=== PATIENT | female | born 1975 | race Caucasian/White ===

== ENCOUNTER 2020-04-22 14:05 | Inpatient (IN) | payer MEDICARE, MEDICAID ==
[2020-04-22] MEDS ORDERED: Sodium Chloride 0.9% 10 ML Syringe FLUSH PRN (14:30)
[2020-04-22] MEDS ORDERED: Sodium Chloride 0.9% 1,000 ML IV ONE ×2 (14:30→14:36)
[2020-04-22] MEDS ORDERED: Famotidine 20 MG/2 ML SDV IVPUSH ONE (14:30)
[2020-04-22] MEDS ORDERED: Sodium Chloride 0.9% 2.5 ML Syringe FLUSH PRN (14:30)
[2020-04-22] MEDS ORDERED: Ondansetron 4 MG/2 ML SDV IVPUSH ONE (14:30)
--- NOTE | 2020-04-22 14:42 | EDM.PDOC ---
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 She is shortness of breath or trouble breathing. Review of systems: As per history of present illness and below otherwise all systems reviewed and negative. Past medical history: As per history of present illness and as reviewed below otherwise noncontributory. Surgical history: As per history of present illness and as reviewed below otherwise noncontributory. Social history: No reported history of drug or alcohol abuse. Family history: As per history of present illness and as reviewed below otherwise noncontributory. Physical exam: HEENT: Atraumatic, normocephalic, pupils reactive, negative for conjunctival p allor or scleral icterus, mucous membranes moist, throat clear, neck supple, nontender, trachea midline. Mucous membranes are tacky Lungs: Clear to auscultation, breath sounds equal bilaterally, chest nontender. Heart: S1S2, regular, negative for clicks, rubs, or JVD. Tachycardic Abdomen: Soft, nondistended, nontender. Negative for masses or hepatosplenomegaly. Negative for costovertebral tenderness. Pelvis: Stable nontender. Genitourinary: Deferred. Rectal: Deferred. Extremities: Atraumatic, negative for cords or calf pain. Neurovascular unremarkable. Neuro: Awake, alert, oriented. Cranial nerves II through XII unremarkable. Cerebellum unremarkable. Motor and sensory unremarkable throughout. Exam nonfocal. Diagnostics: [] Therapeutics: [] Impression: Probable DKA hyperglycemia [] Plan: Fluids labs reassess the patient antiemetics [] Definitive disposition and diagnosis as appropriate pending reevaluation and review of above. chest Pain Score (Numeric/FACES): 8 - Related Data Allergies Allergy/AdvReac Type Severity Reaction Status Date / Time haloperidol [From Haldol] Allergy Other Verified 04/22/20 20:34 ketorolac [From Toradol] Allergy Other Verified 04/22/20 20:34 metoclopramide [From Reglan] Allergy Other Verified 04/22/20 20:34 nut - unspecified Allergy Itching Verified 04/23/20 02:30 prochlorperazine Allergy Other Verified 04/22/20 20:34 [From Compazine] Home Meds: Home Meds Acetaminophen/HYDROcodone [Plain 325-10 MG] 1 tab PO Q3HR PRN 04/22/20 [History] Insulin Aspart (Niacinamide) [Fiasp 100 Unit/ml Flextouch] See Protocol IM TIDAC PRN 04/22/20 [History] Insulin Aspart [NovoLOG] See Protocol IM TIDAC 04/22/20 [History] Insulin Detemir [Levemir] 35 unit SUBCUT ACBREAKFAST 04/22/20 [History] Ondansetron [Zofran] 1 tab PO Q6HR PRN 04/22/20 [History] Promethazine [Phenergan] 1 tab PO Q6HR PRN 04/22/20 [History] busPIRone [Buspar] 30 mg PO BID 04/22/20 [History] diazePAM [Valium] 1 tab PO TID PRN 04/22/20 [History] diphenhydrAMINE [Benadryl] 1 cap PO TID PRN 04/22/20 [History] tiZANidine HCl [Zanaflex] 12 mg PO TID 04/22/20 [History] ED ROS GENERAL - Review of Systems Review Of Systems: See Below ED EXAM, GENERAL - Physical Exam Exam: See Below EKG INTERPRETATION EKG Interpretation Comments: EKG is a artifact sinus tachycardia [address]-T changes no specific ischemia read and interpreted by me Course - Vital Signs Text/Narrative:: Patient shows pancreatitis on her lab work she is still in quite a bit of pain and very nauseous CT abdomen pelvis was performed read by radiology is negative for acute process. I discussed the case with the family law mediator on with the hospitalist Dr. Hancock at 6 PM and they will accept the patient. Last Recorded V/S: Last Vital Signs Temp 36.8 C 04/23/20 04:00 Pulse 74 04/23/20 04:00 Resp 18 04/23/20 04:00 BP 122/70 04/23/20 04:00 Pulse Ox 99 04/23/20 04:00 - Orders/Labs/Meds Orders: Active Orders 24 hr Category Date Time Status Sodium Chloride 0.9% [Saline Flush] Med 04/22/20 14:30 Active 10 ml FLUSH ASDIRECTED PRN Sodium Chloride 0.9% [Saline Flush] Med 04/22/20 14:30 Active 2.5 ml FLUSH ASDIRECTED PRN Saline Lock Insert [OM.PC] Stat Oth 04/22/20 14:30 Ordered Medication Orders Acetaminophen (Tylenol) 650 mg PO Q4H PRN PRN Reason: Pain (Mild 1-3)/fever Dextrose/Water (Dextrose 50% In Water) 50 ml IVPUSH Q6H PRN PRN Reason: Hypoglycemia Diphenhydramine HCl (Benadryl) 50 mg PO TID PRN PRN Reason: Itching Enoxaparin Sodium (Lovenox) 40 mg SUBCUT BEDTIME NIGEL Last Admin: 04/22/20 21:18 Dose: 40 mg Documented by: MEENA Hydromorphone HCl (Dilaudid) 1 mg IVPUSH Q3H PRN PRN Reason: Pain Last Admin: 04/23/20 04:42 Dose: 1 mg Documented by: Admin: 04/23/20 00:26 Dose: 1 mg Documented by: MEENA Pantoprazole Sodium 40 mg/ (Sodium Chloride) 10 mls @ 300 mls/hr IV Q24H NIGEL Last Admin: 04/22/20 21:11 Dose: 300 mls/hr Documented by: MEENA Dextrose/Lactated Ringer's (Dextrose 5%-Lactated Ringers) 1,000 mls @ 125 mls/hr IV ASDIRECTED NIGEL Last Admin: 04/23/20 06:16 Dose: 125 mls/hr Documented by: Infusion: 04/23/20 06:16 Dose: 125 mls/hr Documented by: Admin: 04/22/20 22:49 Dose: 125 mls/hr Documented by: MEENA Insulin Aspart (Novolog) 0 unit SUBCUT TIDAC NIGEL; Protocol Last Admin: 04/23/20 06:30 Dose: Not Given Documented by: Admin: 04/23/20 06:10 Dose: 4 units Documented by: Admin: 04/22/20 23:03 Dose: Not Given Documented by: MEENA Insulin Detemir (Levemir) 15 unit SUBCUT DAILY [facility] Lorazepam (Ativan) 1 mg IVPUSH Q4H PRN PRN Reason: Anxiety Last Admin: 04/23/20 05:57 Dose: 1 mg Documented by: Admin: 04/23/20 01:33 Dose: 1 mg Documented by: MEENA Ondansetron HCl (Zofran) 4 mg IVPUSH Q4H PRN PRN Reason: Nausea/Vomiting Last Admin: 04/23/20 05:56 Dose: 4 mg Documented by: Admin: 04/23/20 01:36 Dose: 4 mg Documented by: Admin: 04/22/20 21:10 Dose: 4 mg Documented by: MEENA Petrolatum (Aquaphor With Natural Healing) 0 gm TOP TID PRN PRN Reason: Dryness Sodium Chloride (Saline Flush) 10 ml FLUSH ASDIRECTED PRN PRN Reason: Keep Vein Open Last Admin: 04/22/20 14:51 Dose: 10 ml Documented by: RUDDY Sodium Chloride (Saline Flush) 2.5 ml FLUSH ASDIRECTED PRN PRN Reason: Keep Vein Open Last Admin: 04/22/20 14:51 Dose: 2.5 ml Documented by: RUDDY Tizanidine HCl (Zanaflex) 12 mg PO TID [facility] Last Admin: 04/23/20 06:30 Dose: Not Given Documented by: MEENA Labs: Laboratory Tests 04/22/20 04/22/20 04/22/20 Range/Units 14:24 14:40 14:40 WBC 9.22 (4.0-11.0) K/uL RBC 4.95 (4.30-5.90) M/uL Hgb 12.9 (12.0-16.0) g/dL Hct 40.0 (36.0-46.0) % MCV 80.8 (80.0-98.0) fL MCH 26.1 L (27.0-32.0) pg MCHC 32.3 (31.0-37.0) g/dL RDW Std Deviation 38.1 (28.0-62.0) fl RDW Coeff of Nancy 13 (11.0-15.0) % Plt Count 311 (150-400) K/uL MPV 10.40 (7.40-12.00) fL Neut % (Auto) 72.3 (48.0-80.0) % Lymph % (Auto) 22.0 (16.0-40.0) % Noble % (Auto) 4.2 (0.0-15.0) % Eos % (Auto) 1.3 (0.0-7.0) % Baso % (Auto) 0.2 (0.0-1.5) % Neut # (Auto) 6.7 H (1.4-5.7) K/uL Lymph # (Auto) 2.0 (0.6-2.4) K/uL Noble # (Auto) 0.4 (0.0-0.8) K/uL Eos # (Auto) 0.1 (0.0-0.7) K/uL Baso # (Auto) 0.0 (0.0-0.1) K/uL Nucleated RBC % 0.0 /100WBC Nucleated RBCs # 0 K/uL VBG pH (7.31-7.41) VBG pCO2 (35-45) mmHG VBG pO2 (30-40) mmHG VBG HCO3 (22-30) mEq/L VBG Total CO2 (41-51) mmol/L VBG Base Excess (-3.0-3.0) Sodium 133 L (136-145) mmol/L Potassium 4.4 (3.5-5.1) mmol/L Chloride 99 (98-107) mmol/L Carbon Dioxide 22.0 (21.0-32.0) mmol/L BUN 18 (7.0-18.0) mg/dL Creatinine 0.8 (0.6-1.0) mg/dL Est Cr Clr Drug Dosing 78.30 mL/min Estimated GFR (MDRD) > 60.0 ml/min Glucose 343 H (74-106) mg/dL POC Glucose 349 H (60-110) mg/dL Calcium 9.1 (8.5-10.1) mg/dL Phosphorus 4.2 (2.6-4.7) mg/dL Magnesium 1.7 L (1.8-2.4) mg/dL Total Bilirubin 0.2 (0.2-1.0) mg/dL AST 17 (15-37) IU/L ALT 30 (14-63) IU/L Alkaline Phosphatase 130 H (46-116) U/L Troponin I < 0.050 (0.000-0.056) ng/mL Total Protein 7.5 (6.4-8.2) g/dL Albumin 4.1 (3.4-5.0) g/dL Globulin 3.4 (2.6-4.0) g/dL Albumin/Globulin Ratio 1.2 (0.9-1.6) Lipase 492 H (73-393) U/L Urine Color Urine Appearance Urine pH (5.0-8.0) Ur Specific Brenton (1.001-1.035) Urine Protein (NEGATIVE) mg/dL Urine Glucose (UA) (NEGATIVE) mg/dL Urine Ketones (NEGATIVE) mg/dL Urine Occult Blood (NEGATIVE) Urine Nitrite (NEGATIVE) Urine Bilirubin (NEGATIVE) Urine Urobilinogen (<2.0) EU/dL Ur Leukocyte Esterase (NEGATIVE) Urine RBC (0-2/HPF) Urine WBC (0-5/HPF) Ur Epithelial Cells (NONE-FEW) Urine Bacteria (NEGATIVE) Urine HCG, Qual (NEGATIVE) 04/22/20 04/22/20 04/22/20 Range/Units 14:40 14:42 14:42 WBC (4.0-11.0) K/uL RBC (4.30-5.90) M/uL Hgb (12.0-16.0) g/dL Hct (36.0-46.0) % MCV (80.0-98.0) fL MCH (27.0-32.0) pg MCHC (31.0-37.0) g/dL RDW Std Deviation (28.0-62.0) fl RDW Coeff of Nancy (11.0-15.0) % Plt Count (150-400) K/uL MPV (7.40-12.00) fL Neut % (Auto) (48.0-80.0) % Lymph % (Auto) (16.0-40.0) % Noble % (Auto) (0.0-15.0) % Eos % (Auto) (0.0-7.0) % Baso % (Auto) (0.0-1.5) % Neut # (Auto) (1.4-5.7) K/uL Lymph # (Auto) (0.6-2.4) K/uL Noble # (Auto) (0.0-0.8) K/uL Eos # (Auto) (0.0-0.7) K/uL Baso # (Auto) (0.0-0.1) K/uL Nucleated RBC % /100WBC Nucleated RBCs # K/uL VBG pH 7.39 (7.31-7.41) VBG pCO2 36 (35-45) mmHG VBG pO2 41 H (30-40) mmHG VBG HCO3 22 (22-30) mEq/L VBG Total CO2 20 L (41-51) mmol/L VBG Base Excess -2.9 (-3.0-3.0) Sodium (136-145) mmol/L Potassium (3.5-5.1) mmol/L Chloride (98-107) mmol/L Carbon Dioxide (21.0-32.0) mmol/L BUN (7.0-18.0) mg/dL Creatinine (0.6-1.0) mg/dL Est Cr Clr Drug Dosing mL/min Estimated GFR (MDRD) ml/min Glucose (74-106) mg/dL POC Glucose (60-110) mg/dL Calcium (8.5-10.1) mg/dL Phosphorus (2.6-4.7) mg/dL Magnesium (1.8-2.4) mg/dL Total Bilirubin (0.2-1.0) mg/dL AST (15-37) IU/L ALT (14-63) IU/L Alkaline Phosphatase (46-116) U/L Troponin I (0.000-0.056) ng/mL Total Protein (6.4-8.2) g/dL Albumin (3.4-5.0) g/dL Globulin (2.6-4.0) g/dL Albumin/Globulin Ratio (0.9-1.6) Lipase (73-393) U/L Urine Color YELLOW Urine Appearance CLEAR Urine pH 5.5 (5.0-8.0) Ur Specific Brenton 1.010 (1.001-1.035) Urine Protein NEGATIVE (NEGATIVE) mg/dL Urine Glucose (UA) >=1000 (NEGATIVE) mg/dL Urine Ketones 15 H (NEGATIVE) mg/dL Urine Occult Blood SMALL H (NEGATIVE) Urine Nitrite NEGATIVE (NEGATIVE) Urine Bilirubin NEGATIVE (NEGATIVE) Urine Urobilinogen 0.2 (<2.0) EU/dL Ur Leukocyte Esterase NEGATIVE (NEGATIVE) Urine RBC 0-2 (0-2/HPF) Urine WBC 0-1 (0-5/HPF) Ur Epithelial Cells FEW (NONE-FEW) Urine Bacteria FEW (NEGATIVE) Urine HCG, Qual NEGATIVE (NEGATIVE) Meds: Medications Generic Name Dose Route Start Last Admin Trade Name Freq PRN Reason Stop Dose Admin Acetaminophen 650 mg 04/22/20 20:40 Tylenol PO Q4H PRN Pain (Mild 1-3)/fever Dextrose/Water 50 ml 04/22/20 23:18 Dextrose 50% In Water IVPUSH Q6H PRN Hypoglycemia Diphenhydramine HCl 50 mg 04/22/20 23:18 Benadryl PO TID PRN Itching Enoxaparin Sodium 40 mg 04/22/20 21:00 04/22/20 21:18 Lovenox SUBCUT 40 mg BEDTIME NIGEL Administration Hydromorphone HCl 1 mg 04/22/20 22:53 04/23/20 04:42 Dilaudid IVPUSH 1 mg Q3H PRN Administration Pain Pantoprazole Sodium 40 mg/ 10 mls @ 300 mls/hr 04/22/20 20:45 04/22/20 21:11 Sodium Chloride IV 300 mls/hr Q24H NIGEL Administration Dextrose/Lactated Ringer's 1,000 mls @ 125 mls/hr 04/22/20 22:30 04/23/20 06:16 Dextrose 5%-Lactated Ringers IV 125 mls/hr ASDIRECTED NIGEL Administration Insulin Aspart 0 unit 04/22/20 22:52 04/23/20 06:30 Novolog SUBCUT Not Given [facility] Protocol Insulin Detemir 15 unit 04/23/20 09:00 Levemir SUBCUT DAILY NIGEL Lorazepam 1 mg 04/22/20 22:54 04/23/20 05:57 Ativan IVPUSH 1 mg Q4H PRN Administration Anxiety Ondansetron HCl 4 mg 04/22/20 20:32 04/23/20 05:56 Zofran IVPUSH 4 mg Q4H PRN Administration Nausea/Vomiting Petrolatum 0 gm 04/22/20 20:48 Aquaphor With Natural Healing TOP TID PRN Dryness Sodium Chloride 10 ml 04/22/20 14:30 04/22/20 14:51 Saline Flush FLUSH 10 ml ASDIRECTED PRN Administration Keep Vein Open Sodium Chloride 2.5 ml 04/22/20 14:30 04/22/20 14:51 Saline Flush FLUSH 2.5 ml ASDIRECTED PRN Administration Keep Vein Open Tizanidine HCl 12 mg 04/23/20 06:00 04/23/20 06:30 Zanaflex PO Not Given TID NIGEL Discontinued Medications Generic Name Dose Route Start Last Admin Trade Name Freq PRN Reason Stop Dose Admin Dextrose/Water Confirm 04/22/20 21:33 04/22/20 23:08 Dextrose 50% In Water Administered 04/22/20 21:34 Not Given Dose 50 ml .ROUTE .STK-MED ONE Dextrose/Water 25 ml 04/22/20 22:19 04/22/20 22:47 Dextrose 50% In Water IVPUSH 04/22/20 22:20 25 ml ONETIME ONE Administration Dextrose/Water 25 ml 04/23/20 00:20 04/23/20 00:25 Dextrose 50% In Water IVPUSH 04/23/20 00:21 25 ml ONETIME ONE Administration Diphenhydramine HCl 50 mg 04/22/20 18:03 04/22/20 18:27 Benadryl IVPUSH 04/22/20 18:04 50 mg ONETIME ONE Administration Diphenhydramine HCl 25 mg 04/22/20 22:21 04/22/20 22:47 Benadryl IVPUSH 04/22/20 22:22 25 mg ONETIME ONE Administration Famotidine 20 mg 04/22/20 14:30 04/22/20 14:51 Pepcid IVPUSH 04/22/20 14:31 20 mg ONETIME ONE Administration Hydromorphone HCl 0.5 mg 04/22/20 20:34 04/22/20 21:04 Dilaudid IVPUSH 0.5 mg Q2H PRN Administration Pain Sodium Chloride 1,000 mls @ 999 mls/hr 04/22/20 14:30 04/22/20 14:50 Normal Saline IV 04/22/20 15:30 999 mls/hr .Bolus ONE Administration Sodium Chloride 1,000 mls @ 999 mls/hr 04/22/20 14:36 04/22/20 14:51 Normal Saline IV 04/22/20 15:36 999 mls/hr .Bolus ONE Administration Lactated Ringer's 1,000 mls @ 125 mls/hr 04/22/20 20:45 04/22/20 21:01 Ringers, Lactated IV 125 mls/hr ASDIRECTED NIGEL Administration Magnesium Sulfate 2 gm in 50 mls @ 25 mls/hr 04/22/20 23:00 04/22/20 23:18 Magnesium Sulfate In Water Premix IV 04/23/20 00:59 25 mls/hr NOW ONE Administration Insulin Aspart 0 unit 04/23/20 07:30 Novolog SUBCUT [facility] Protocol Iopamidol 66 ml 04/22/20 16:39 04/22/20 16:39 Isovue-370 (76%) IVPUSH 04/22/20 16:40 66 ml ONETIME ONE Administration Lorazepam 1 mg 04/22/20 15:56 04/22/20 16:12 Ativan IVPUSH 04/22/20 15:57 1 mg ONETIME ONE Administration Lorazepam 0.5 mg 04/22/20 20:33 04/22/20 21:16 Ativan IVPUSH 0.5 mg Q4H PRN Administration Anxiety Morphine Sulfate 4 mg 04/22/20 15:03 04/22/20 15:19 Morphine IVPUSH 04/22/20 15:04 4 mg ONETIME ONE Administration Morphine Sulfate 4 mg 04/22/20 17:09 04/22/20 17:24 Morphine IVPUSH 04/22/20 17:10 4 mg ONETIME ONE Administration Ondansetron HCl 4 mg 04/22/20 14:30 04/22/20 14:51 Zofran IVPUSH 04/22/20 14:31 4 mg ONETIME ONE Administration Departure - Departure Time of Disposition: 18:10 Disposition: Refer to Observation Condition: Fair Clinical Impression: Abdominal pain - Discharge Information *PRESCRIPTION DRUG MONITORING PROGRAM REVIEWED*: Not Applicable *COPY OF PRESCRIPTION DRUG MONITORING REPORT IN PATIENT CESAR: Not Applicable Sepsis Event Note (ED) - Evaluation Sepsis Screening Result: No Definite Risk - My Orders Last 24 Hours: My Active Orders 04/22/20 14:30 Sodium Chloride 0.9% [Saline Flush] 10 ml FLUSH ASDIRECTED PRN Sodium Chloride 0.9% [Saline Flush] 2.5 ml FLUSH ASDIRECTED PRN Saline Lock Insert [OM.PC] Stat - Assessment/Plan Last 24 Hours: My Active Orders 04/22/20 14:30 Sodium Chloride 0.9% [Saline Flush] 10 ml FLUSH ASDIRECTED PRN Sodium Chloride 0.9% [Saline Flush] 2.5 ml FLUSH ASDIRECTED PRN Saline Lock Insert [OM.PC] Stat
[2020-04-22] MEDS ORDERED: Morphine 4 MG/ML Syringe IVPUSH ONE ×2 (15:03→17:09)
[2020-04-22 15:05] LABS: BLOOD UREA NITROGEN,BUN 18 mg/dL (7.0-18.0); CHLORIDE,CL 99 mmol/L (98-107); GLUCOSE RANDOM 343 mg/dL (74-106); LIPASE 492 U/L (73-393); POTASSIUM,K 4.4 mmol/L (3.5-5.1); SODIUM,NA 133 mmol/L (136-145)
--- NOTE | 2020-04-22 15:43 | CR ---
Chest: Portable view of the chest was obtained. Comparison: No prior chest x-ray. Heart size and mediastinum are normal. Lungs are clear with no acute parenchymal change. Right sided infusion port is seen. Bony structures are grossly intact. Impression: 1. Nothing acute is seen on portable chest x-ray. Diagnostic code #1 Study was dictated in MDT
[2020-04-22] MEDS ORDERED: LORazepam 2 MG/ML SDV IVPUSH ONE (15:56)
[2020-04-22] MEDS ORDERED: Iopamidol 755 Mg/ML 100 ML Bottle IVPUSH ONE (16:39)
--- NOTE | 2020-04-22 16:59 | CT ---
CT abdomen and pelvis Technique: Multiple axial images were obtained from above the dome of the diaphragm inferiorly through the pubic symphysis. Intravenous contrast was utilized. No oral contrast has been given. Reconstructed coronal and sagittal images were obtained. Comparison: No prior abdominal imaging is available. Findings: Visualized lung bases show nothing acute. Liver contains no focal parenchymal abnormality. Surgical clips are seen from previous cholecystectomy. Spleen appears within normal limits. Adrenal glands show no nodule. Pancreas shows no discrete abnormality. Kidneys show symmetric contrast enhancement without hydronephrosis or mass. Aorta shows no aneurysm. Mild atherosclerotic calcifications seen within the aorta and iliac vessels. No retroperitoneal adenopathy or mesenteric abnormalities are seen. No pelvic mass or adenopathy is seen. No free fluid or inflammatory change is appreciated within the abdomen or within the pelvis. Surgical material is seen within the right lower abdomen most likely representing previous appendectomy as no appendix is definitely appreciated. No discrete ureteral calcifications are appreciated. Bone window settings were reviewed. No acute osseous finding is appreciated. Impression: 1. Previous cholecystectomy. 2. Nothing acute is appreciated on CT study of the abdomen and pelvis. Diagnostic code #2 This report was dictated in MDT
[2020-04-22] MEDS ORDERED: diphenhydrAMINE 50 MG/ML SDV IVPUSH ONE ×2 (18:03→22:21)
[2020-04-22] MEDS ORDERED: LORazepam 2 MG/ML SDV IVPUSH PRN (20:33)
[2020-04-22] MEDS ORDERED: HYDROmorphone 2 MG/ML Syringe IVPUSH PRN (20:34)
[2020-04-22] MEDS ORDERED: Acetaminophen 325 MG Tab PO PRN (20:40)
[2020-04-22] MEDS ORDERED: Lactated Ringers 1,000 ML IV SCH (20:45)
[2020-04-22] MEDS ORDERED: Petrolatum,White Ointment 50 GM Tube TOP PRN (20:48)
--- NOTE | 2020-04-22 21:08 | PCM.HP.2 ---
<Bartolo Rockwell - Last Filed: 04/23/20 10:27> H&P History of Present Illness - General Date of Service: 04/22/20 Admit Problem/Dx: Admission Diagnosis/Problem Admission Diagnosis/Problem Pancreatitis - History of Present Illness Initial Comments - Free Text/Narative: 44 yr old female patient admitted for Acute pancreatitis and hyperglycemia. Patient presented to the ED with complaints of nausea, vomiting and abdominal pain for several days. Patient has a PMH of diabetes type 1, DKA episodes, acute pancreatitis episodes. Patient has not been able to keep food or liquid down but has continued using her insulin. Patient denies chest pain SOB, but states moderate abdominal pain, right and left flank pain and back pain. CT-Abdo was negative for any inflammatory pancreatic process, lipase elevated at 492, VBG ph 7.39, glucose 343, K+ 4.4, WBC 9.22. chest Pain Score (Numeric/FACES): 8 - Related Data Allergies/Adverse Reactions: Allergies Allergy/AdvReac Type Severity Reaction Status Date / Time haloperidol [From Haldol] Allergy Other Verified 04/22/20 20:34 ketorolac [From Toradol] Allergy Other Verified 04/22/20 20:34 metoclopramide [From Reglan] Allergy Other Verified 04/22/20 20:34 nut - unspecified Allergy Itching Verified 04/23/20 02:30 prochlorperazine Allergy Other Verified 04/22/20 20:34 [From Compazine] Home Medications: Home Meds Acetaminophen/HYDROcodone [[place] 325-10 MG] 1 tab PO Q3HR PRN 04/22/20 [History] Insulin Aspart (Niacinamide) [Fiasp 100 Unit/ml Flextouch] See Protocol IM TIDAC PRN 04/22/20 [History] Insulin Aspart [NovoLOG] See Protocol IM TIDAC 04/22/20 [History] Insulin Detemir [Levemir] 35 unit SUBCUT ACBREAKFAST 04/22/20 [History] Ondansetron [Zofran] 8 mg PO Q6HR PRN 04/22/20 [History] Promethazine [Phenergan] 25 mg PO Q6HR PRN 04/22/20 [History] busPIRone [Buspar] 30 mg PO BID 04/22/20 [History] diazePAM [Valium] 5 mg PO TID PRN 04/22/20 [History] diphenhydrAMINE [Benadryl] 1 cap PO TID PRN 04/22/20 [History] tiZANidine HCl [Zanaflex] 12 mg PO TID 04/22/20 [History] Gabapentin [Neurontin] 04/23/20 [History] Insulin Aspart (Niacinamide) [Fiasp 100 Unit/ml Flextouch] 10 units SUBCUT TIDMEALS 04/23/20 [History] Past Medical History Respiratory History: Reports: Asthma Gastrointestinal History: Reports: None Genitourinary History: Reports: None 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: Psychiatric History: Reports: Anxiety, Bipolar, Depression, Panic Attack, PTSD Endocrine/Metabolic History: Reports: Diabetes, Type I - Infectious Disease History Infectious Disease History: Reports: Chicken Pox, Measles - Past Surgical History Respiratory Surgical History: Reports: None GI Surgical History: Reports: Appendectomy, Cholecystectomy Female Surgical History: Reports: Hysterectomy Endocrine Surgical History: Reports: None Social & Family History - Family History Family Medical History: Noncontributory - Tobacco Use Smoking Status *Q: Current Every Day Smoker Years of Tobacco use: 25 Packs/Tins Daily: 1 - Caffeine Use Caffeine Use: Reports: None - Recreational Drug Use Recreational Drug Use: No H&P Review of Systems - Review of Systems: Review Of Systems: See Below General: Reports: Weakness, Fatigue. Denies: Fever, Chills Pulmonary: Denies: Shortness of Breath, Wheezing, Pleuritic Chest Pain, Cough Cardiovascular: Denies: Chest Pain, Palpitations, Dyspnea on Exertion Gastrointestinal: Reports: Abdominal Pain, Nausea, Vomiting Genitourinary: Denies: Dysuria, Frequency, Burning Musculoskeletal: Reports: Back Pain Skin: Reports: Dryness Neurological: Denies: Confusion, Dizziness, Seizure, Syncope Exam - Exam Exam: See Below - Vital Signs Vital Signs: Last Vital Signs Temp 97.1 F 04/22/20 14:18 Pulse 92 04/22/20 18:56 Resp 19 04/22/20 14:18 BP 128/93 H 04/22/20 18:56 Pulse Ox 100 04/22/20 18:56 Weight: 58.468 kg - Exam General: Alert, Oriented HEENT: EOMI Lungs: Clear to Auscultation, Normal Respiratory Effort Cardiovascular: Regular Rate, Regular Rhythm GI/Abdominal Exam: Soft, No Distention, Guarding, Tender Extremities: No Pedal Edema Skin: Warm, Dry Neuro Extensive - Mental Status: Alert, Oriented x3, Normal Cognition Neuro Extensive - Motor, Sensory, Reflexes: No: Abnormal Sensation Psychiatric: Anxious - Patient Data Lab Results Last 24 hrs: Laboratory Results - last 24 hr 04/22/20 04/22/20 04/22/20 Range/Units 14:24 14:40 14:40 WBC 9.22 (4.0-11.0) K/uL RBC 4.95 (4.30-5.90) M/uL Hgb 12.9 (12.0-16.0) g/dL Hct 40.0 (36.0-46.0) % MCV 80.8 (80.0-98.0) fL MCH 26.1 L (27.0-32.0) pg MCHC 32.3 (31.0-37.0) g/dL RDW Std Deviation 38.1 (28.0-62.0) fl RDW Coeff of Nancy 13 (11.0-15.0) % Plt Count 311 (150-400) K/uL MPV 10.40 (7.40-12.00) fL Neut % (Auto) 72.3 (48.0-80.0) % Lymph % (Auto) 22.0 (16.0-40.0) % [place] % (Auto) 4.2 (0.0-15.0) % Eos % (Auto) 1.3 (0.0-7.0) % Baso % (Auto) 0.2 (0.0-1.5) % Neut # (Auto) 6.7 H (1.4-5.7) K/uL Lymph # (Auto) 2.0 (0.6-2.4) K/uL [place] # (Auto) 0.4 (0.0-0.8) K/uL Eos # (Auto) 0.1 (0.0-0.7) K/uL Baso # (Auto) 0.0 (0.0-0.1) K/uL Nucleated RBC % 0.0 /100WBC Nucleated RBCs # 0 K/uL VBG pH (7.31-7.41) VBG pCO2 (35-45) mmHG VBG pO2 (30-40) mmHG VBG HCO3 (22-30) mEq/L VBG Total CO2 (41-51) mmol/L VBG Base Excess (-3.0-3.0) Sodium 133 L (136-145) mmol/L Potassium 4.4 (3.5-5.1) mmol/L Chloride 99 (98-107) mmol/L Carbon Dioxide 22.0 (21.0-32.0) mmol/L BUN 18 (7.0-18.0) mg/dL Creatinine 0.8 (0.6-1.0) mg/dL Est Cr Clr Drug Dosing 78.30 mL/min Estimated GFR (MDRD) > 60.0 ml/min Glucose 343 H (74-106) mg/dL POC Glucose 349 H (60-110) mg/dL Calcium 9.1 (8.5-10.1) mg/dL Phosphorus 4.2 (2.6-4.7) mg/dL Magnesium 1.7 L (1.8-2.4) mg/dL Total Bilirubin 0.2 (0.2-1.0) mg/dL AST 17 (15-37) IU/L ALT 30 (14-63) IU/L Alkaline Phosphatase 130 H (46-116) U/L Troponin I < 0.050 (0.000-0.056) ng/mL Total Protein 7.5 (6.4-8.2) g/dL Albumin 4.1 (3.4-5.0) g/dL Globulin 3.4 (2.6-4.0) g/dL Albumin/Globulin Ratio 1.2 (0.9-1.6) Lipase 492 H (73-393) U/L Urine Color Urine Appearance Urine pH (5.0-8.0) Ur Specific [place] (1.001-1.035) Urine Protein (NEGATIVE) mg/dL Urine Glucose (UA) (NEGATIVE) mg/dL Urine Ketones (NEGATIVE) mg/dL Urine Occult Blood (NEGATIVE) Urine Nitrite (NEGATIVE) Urine Bilirubin (NEGATIVE) Urine Urobilinogen (<2.0) EU/dL Ur Leukocyte Esterase (NEGATIVE) Urine RBC (0-2/HPF) Urine WBC (0-5/HPF) Ur Epithelial Cells (NONE-FEW) Urine Bacteria (NEGATIVE) Urine HCG, Qual (NEGATIVE) SARS-CoV-2 RNA (AJCLYN) (NEGATIVE) 04/22/20 04/22/20 04/22/20 Range/Units 14:40 14:42 14:42 WBC (4.0-11.0) K/uL RBC (4.30-5.90) M/uL Hgb (12.0-16.0) g/dL Hct (36.0-46.0) % MCV (80.0-98.0) fL MCH (27.0-32.0) pg MCHC (31.0-37.0) g/dL RDW Std Deviation (28.0-62.0) fl RDW Coeff of Nancy (11.0-15.0) % Plt Count (150-400) K/uL MPV (7.40-12.00) fL Neut % (Auto) (48.0-80.0) % Lymph % (Auto) (16.0-40.0) % [place] % (Auto) (0.0-15.0) % Eos % (Auto) (0.0-7.0) % Baso % (Auto) (0.0-1.5) % Neut # (Auto) (1.4-5.7) K/uL Lymph # (Auto) (0.6-2.4) K/uL [place] # (Auto) (0.0-0.8) K/uL Eos # (Auto) (0.0-0.7) K/uL Baso # (Auto) (0.0-0.1) K/uL Nucleated RBC % /100WBC Nucleated RBCs # K/uL VBG pH 7.39 (7.31-7.41) VBG pCO2 36 (35-45) mmHG VBG pO2 41 H (30-40) mmHG VBG HCO3 22 (22-30) mEq/L VBG Total CO2 20 L (41-51) mmol/L VBG Base Excess -2.9 (-3.0-3.0) Sodium (136-145) mmol/L Potassium (3.5-5.1) mmol/L Chloride (98-107) mmol/L Carbon Dioxide (21.0-32.0) mmol/L BUN (7.0-18.0) mg/dL Creatinine (0.6-1.0) mg/dL Est Cr Clr Drug Dosing mL/min Estimated GFR (MDRD) ml/min Glucose (74-106) mg/dL POC Glucose (60-110) mg/dL Calcium (8.5-10.1) mg/dL Phosphorus (2.6-4.7) mg/dL Magnesium (1.8-2.4) mg/dL Total Bilirubin (0.2-1.0) mg/dL AST (15-37) IU/L ALT (14-63) IU/L Alkaline Phosphatase (46-116) U/L Troponin I (0.000-0.056) ng/mL Total Protein (6.4-8.2) g/dL Albumin (3.4-5.0) g/dL Globulin (2.6-4.0) g/dL Albumin/Globulin Ratio (0.9-1.6) Lipase (73-393) U/L Urine Color YELLOW Urine Appearance CLEAR Urine pH 5.5 (5.0-8.0) Ur Specific [place] 1.010 (1.001-1.035) Urine Protein NEGATIVE (NEGATIVE) mg/dL Urine Glucose (UA) >=1000 (NEGATIVE) mg/dL Urine Ketones 15 H (NEGATIVE) mg/dL Urine Occult Blood SMALL H (NEGATIVE) Urine Nitrite NEGATIVE (NEGATIVE) Urine Bilirubin NEGATIVE (NEGATIVE) Urine Urobilinogen 0.2 (<2.0) EU/dL Ur Leukocyte Esterase NEGATIVE (NEGATIVE) Urine RBC 0-2 (0-2/HPF) Urine WBC 0-1 (0-5/HPF) Ur Epithelial Cells FEW (NONE-FEW) Urine Bacteria FEW (NEGATIVE) Urine HCG, Qual NEGATIVE (NEGATIVE) SARS-CoV-2 RNA (JACLYN) (NEGATIVE) 04/22/20 04/22/20 Range/Units 18:20 18:26 WBC (4.0-11.0) K/uL RBC (4.30-5.90) M/uL Hgb (12.0-16.0) g/dL Hct (36.0-46.0) % MCV (80.0-98.0) fL MCH (27.0-32.0) pg MCHC (31.0-37.0) g/dL RDW Std Deviation (28.0-62.0) fl RDW Coeff of Nancy (11.0-15.0) % Plt Count (150-400) K/uL MPV (7.40-12.00) fL Neut % (Auto) (48.0-80.0) % Lymph % (Auto) (16.0-40.0) % [place] % (Auto) (0.0-15.0) % Eos % (Auto) (0.0-7.0) % Baso % (Auto) (0.0-1.5) % Neut # (Auto) (1.4-5.7) K/uL Lymph # (Auto) (0.6-2.4) K/uL [place] # (Auto) (0.0-0.8) K/uL Eos # (Auto) (0.0-0.7) K/uL Baso # (Auto) (0.0-0.1) K/uL Nucleated RBC % /100WBC Nucleated RBCs # K/uL VBG pH (7.31-7.41) VBG pCO2 (35-45) mmHG VBG pO2 (30-40) mmHG VBG HCO3 (22-30) mEq/L VBG Total CO2 (41-51) mmol/L VBG Base Excess (-3.0-3.0) Sodium (136-145) mmol/L Potassium (3.5-5.1) mmol/L Chloride (98-107) mmol/L Carbon Dioxide (21.0-32.0) mmol/L BUN (7.0-18.0) mg/dL Creatinine (0.6-1.0) mg/dL Est Cr Clr Drug Dosing mL/min Estimated GFR (MDRD) ml/min Glucose (74-106) mg/dL POC Glucose 88 (60-110) mg/dL Calcium (8.5-10.1) mg/dL Phosphorus (2.6-4.7) mg/dL Magnesium (1.8-2.4) mg/dL Total Bilirubin (0.2-1.0) mg/dL AST (15-37) IU/L ALT (14-63) IU/L Alkaline Phosphatase (46-116) U/L Troponin I (0.000-0.056) ng/mL Total Protein (6.4-8.2) g/dL Albumin (3.4-5.0) g/dL Globulin (2.6-4.0) g/dL Albumin/Globulin Ratio (0.9-1.6) Lipase (73-393) U/L Urine Color Urine Appearance Urine pH (5.0-8.0) Ur Specific [place] (1.001-1.035) Urine Protein (NEGATIVE) mg/dL Urine Glucose (UA) (NEGATIVE) mg/dL Urine Ketones (NEGATIVE) mg/dL Urine Occult Blood (NEGATIVE) Urine Nitrite (NEGATIVE) Urine Bilirubin (NEGATIVE) Urine Urobilinogen (<2.0) EU/dL Ur Leukocyte Esterase (NEGATIVE) Urine RBC (0-2/HPF) Urine WBC (0-5/HPF) Ur Epithelial Cells (NONE-FEW) Urine Bacteria (NEGATIVE) Urine HCG, Qual (NEGATIVE) SARS-CoV-2 RNA (JACLYN) NEGATIVE (NEGATIVE) Result Diagrams: 04/23/20 05:53 04/23/20 05:53 Sepsis Event Note - Evaluation Sepsis Screening Result: No Definite Risk - Focused Exam Vital Signs: Vital Signs Temp Pulse Resp BP Pulse Ox 04/22/20 18:56 92 128/93 H 100 04/22/20 18:42 87 119/89 97 04/22/20 17:57 94/60 04/22/20 17:26 84 117/72 100 04/22/20 16:12 121/64 04/22/20 15:11 103/61 04/22/20 15:05 89/49 L 04/22/20 14:40 95 100 04/22/20 14:18 97.1 F 72 19 138/102 H 98 Problem List Initiated/Reviewed/Updated: Yes Orders Last 24hrs: Active Orders 24 hr Category Date Time Status Patient Status [ADT] Routine ADT 04/22/20 17:57 Active Blood Glucose Check, Bedside [RC] ONETIME Care 04/22/20 17:57 Active Oxygen Therapy [RC] PRN Care 04/22/20 20:40 Active VTE/DVT Education [RC] PER UNIT ROUTINE Care 04/22/20 20:40 Active Vital Signs [RC] Q4H Care 04/22/20 20:40 Active NPO Now [Nothing per Oral Now Diet] [DIET] Diet 04/22/20 Dinner Active Acetaminophen [TylenoL] Med 04/22/20 20:40 Active 650 mg PO Q4H PRN Enoxaparin [Lovenox] Med 04/22/20 21:00 Active 40 mg SUBCUT BEDTIME HYDROmorphone [Dilaudid] Med 04/22/20 20:34 Active 0.5 mg IVPUSH Q2H PRN Insulin Aspart [NovoLOG] Med 04/23/20 07:30 Active See Protocol SUBCUT TIDAC LORazepam [Ativan] Med 04/22/20 20:33 Active 0.5 mg IVPUSH Q4H PRN Lactated Ringers [Ringers, Lactated] 1,000 ml Med 04/22/20 20:45 Active IV ASDIRECTED Ondansetron [Zofran] Med 04/22/20 20:32 Active 4 mg IVPUSH Q4H PRN Pantoprazole [ProTONIX IV] 40 mg Med 04/22/20 20:45 Active Sodium Chloride 0.9% [Normal Saline] 10 ml IV Q24H Petrolatum,White [Aquaphor with Natural Healing] Med 04/22/20 20:48 Active See Dose Instructions TOP TID PRN Sodium Chloride 0.9% [Saline Flush] Med 04/22/20 14:30 Active 10 ml FLUSH ASDIRECTED PRN Sodium Chloride 0.9% [Saline Flush] Med 04/22/20 14:30 Active 2.5 ml FLUSH ASDIRECTED PRN Saline Lock Insert [OM.PC] Stat Oth 04/22/20 14:30 Ordered Code Status [Resuscitation Status] Routine Resus Stat 04/22/20 20:52 Ordered Medication Orders Acetaminophen (Tylenol) 650 mg PO Q4H PRN PRN Reason: Pain (Mild 1-3)/fever Enoxaparin Sodium (Lovenox) 40 mg SUBCUT BEDTIME NIGEL Hydromorphone HCl (Dilaudid) 0.5 mg IVPUSH Q2H PRN PRN Reason: Pain Lactated Ringer's (Ringers, Lactated) 1,000 mls @ 125 mls/hr IV ASDIRECTED NIGEL Pantoprazole Sodium 40 mg/ (Sodium Chloride) 10 mls @ 300 mls/hr IV Q24H NIGEL Insulin Aspart (Novolog) 0 unit SUBCUT TIDAC NIGEL; Protocol Lorazepam (Ativan) 0.5 mg IVPUSH Q4H PRN PRN Reason: Anxiety Ondansetron HCl (Zofran) 4 mg IVPUSH Q4H PRN PRN Reason: Nausea/Vomiting Petrolatum (Aquaphor With Natural Healing) 0 gm TOP TID PRN PRN Reason: Dryness Sodium Chloride (Saline Flush) 10 ml FLUSH ASDIRECTED PRN PRN Reason: Keep Vein Open Last Admin: 04/22/20 14:51 Dose: 10 ml Documented by: RUDDY Sodium Chloride (Saline Flush) 2.5 ml FLUSH ASDIRECTED PRN PRN Reason: Keep Vein Open Last Admin: 04/22/20 14:51 Dose: 2.5 ml Documented by: RUDDY Assessment/Plan Comment:: Assessment/Plan: Acute Pancreatitis- NPO, 125ml/hr LR, (Patient received 2L NS bolus in the ED), Dilaudid 0.5mg, Zofran 4mg, PPI 40mg daily, Hyperglycemia- Secondary to DM 1, Insulin sliding scale, IV FLUIDS, Will resume home dose of Levemir at bedtime once medications have been reconciled. PMH Anxiety, Bipolar- Resume Home meds (med rec pending) <Tierra Andrade - Last Filed: 04/25/20 14:26> H&P History of Present Illness - General Admit Problem/Dx: Admission Diagnosis/Problem Admission Diagnosis/Problem Pancreatitis Exam - Vital Signs Vital Signs: Last Vital Signs Temp 37.1 C 04/25/20 11:00 Pulse 113 H 04/25/20 11:00 Resp 18 04/25/20 11:00 BP 105/69 04/25/20 11:00 Pulse Ox 97 04/25/20 11:00 - Patient Data Lab Results Last 24 hrs: Laboratory Results - last 24 hr 04/24/20 04/24/20 04/24/20 Range/Units 05:00 17:42 23:46 WBC (4.0-11.0) K/uL RBC (4.30-5.90) M/uL Hgb (12.0-16.0) g/dL Hct (36.0-46.0) % MCV (80.0-98.0) fL MCH (27.0-32.0) pg MCHC (31.0-37.0) g/dL RDW Std Deviation (28.0-62.0) fl RDW Coeff of Nancy (11.0-15.0) % Plt Count (150-400) K/uL MPV (7.40-12.00) fL Neut % (Auto) (48.0-80.0) % Lymph % (Auto) (16.0-40.0) % [place] % (Auto) (0.0-15.0) % Eos % (Auto) (0.0-7.0) % Baso % (Auto) (0.0-1.5) % Neut # (Auto) (1.4-5.7) K/uL Lymph # (Auto) (0.6-2.4) K/uL [place] # (Auto) (0.0-0.8) K/uL Eos # (Auto) (0.0-0.7) K/uL Baso # (Auto) (0.0-0.1) K/uL Nucleated RBC % /100WBC Nucleated RBCs # K/uL Sodium (136-145) mmol/L Potassium (3.5-5.1) mmol/L Chloride (98-107) mmol/L Carbon Dioxide (21.0-32.0) mmol/L BUN (7.0-18.0) mg/dL Creatinine (0.6-1.0) mg/dL Est Cr Clr Drug Dosing mL/min Estimated GFR (MDRD) ml/min Glucose (74-106) mg/dL POC Glucose 424 H 240 H (60-110) mg/dL Hemoglobin A1c 9.3 H (4.5-6.2) % Calcium (8.5-10.1) mg/dL Phosphorus (2.6-4.7) mg/dL Magnesium (1.8-2.4) mg/dL Troponin I (0.000-0.056) ng/mL Lipase (73-393) U/L 04/25/20 04/25/20 04/25/20 Range/Units 06:10 06:25 06:25 WBC 4.80 (4.0-11.0) K/uL RBC 4.31 (4.30-5.90) M/uL Hgb 10.9 L (12.0-16.0) g/dL Hct 35.3 L (36.0-46.0) % MCV 81.9 (80.0-98.0) fL MCH 25.3 L (27.0-32.0) pg MCHC 30.9 L (31.0-37.0) g/dL RDW Std Deviation 37.5 (28.0-62.0) fl RDW Coeff of Nancy 13 (11.0-15.0) % Plt Count 248 (150-400) K/uL MPV 10.70 (7.40-12.00) fL Neut % (Auto) 52.7 (48.0-80.0) % Lymph % (Auto) 38.5 (16.0-40.0) % [place] % (Auto) 6.3 (0.0-15.0) % Eos % (Auto) 2.3 (0.0-7.0) % Baso % (Auto) 0.2 (0.0-1.5) % Neut # (Auto) 2.5 (1.4-5.7) K/uL Lymph # (Auto) 1.9 (0.6-2.4) K/uL [place] # (Auto) 0.3 (0.0-0.8) K/uL Eos # (Auto) 0.1 (0.0-0.7) K/uL Baso # (Auto) 0.0 (0.0-0.1) K/uL Nucleated RBC % 0.0 /100WBC Nucleated RBCs # 0 K/uL Sodium 133 L (136-145) mmol/L Potassium 4.6 (3.5-5.1) mmol/L Chloride 98 (98-107) mmol/L Carbon Dioxide 23.7 (21.0-32.0) mmol/L BUN 9 (7.0-18.0) mg/dL Creatinine 0.8 (0.6-1.0) mg/dL Est Cr Clr Drug Dosing 78.30 mL/min Estimated GFR (MDRD) > 60.0 ml/min Glucose 468 H (74-106) mg/dL POC Glucose 394 H (60-110) mg/dL Hemoglobin A1c (4.5-6.2) % Calcium 7.9 L (8.5-10.1) mg/dL Phosphorus 3.8 (2.6-4.7) mg/dL Magnesium 1.5 L (1.8-2.4) mg/dL Troponin I (0.000-0.056) ng/mL Lipase (73-393) U/L 04/25/20 04/25/20 04/25/20 Range/Units 09:46 10:09 10:09 WBC (4.0-11.0) K/uL RBC (4.30-5.90) M/uL Hgb (12.0-16.0) g/dL Hct (36.0-46.0) % MCV (80.0-98.0) fL MCH (27.0-32.0) pg MCHC (31.0-37.0) g/dL RDW Std Deviation (28.0-62.0) fl RDW Coeff of Nancy (11.0-15.0) % Plt Count (150-400) K/uL MPV (7.40-12.00) fL Neut % (Auto) (48.0-80.0) % Lymph % (Auto) (16.0-40.0) % [place] % (Auto) (0.0-15.0) % Eos % (Auto) (0.0-7.0) % Baso % (Auto) (0.0-1.5) % Neut # (Auto) (1.4-5.7) K/uL Lymph # (Auto) (0.6-2.4) K/uL [place] # (Auto) (0.0-0.8) K/uL Eos # (Auto) (0.0-0.7) K/uL Baso # (Auto) (0.0-0.1) K/uL Nucleated RBC % /100WBC Nucleated RBCs # K/uL Sodium (136-145) mmol/L Potassium (3.5-5.1) mmol/L Chloride (98-107) mmol/L Carbon Dioxide (21.0-32.0) mmol/L BUN (7.0-18.0) mg/dL Creatinine (0.6-1.0) mg/dL Est Cr Clr Drug Dosing mL/min Estimated GFR (MDRD) ml/min Glucose 563 H* (74-106) mg/dL POC Glucose > 500 H (60-110) mg/dL Hemoglobin A1c (4.5-6.2) % Calcium (8.5-10.1) mg/dL Phosphorus (2.6-4.7) mg/dL Magnesium (1.8-2.4) mg/dL Troponin I < 0.050 (0.000-0.056) ng/mL Lipase (73-393) U/L 04/25/20 04/25/20 04/25/20 Range/Units 10:09 10:56 12:15 WBC (4.0-11.0) K/uL RBC (4.30-5.90) M/uL Hgb (12.0-16.0) g/dL Hct (36.0-46.0) % MCV (80.0-98.0) fL MCH (27.0-32.0) pg MCHC (31.0-37.0) g/dL RDW Std Deviation (28.0-62.0) fl RDW Coeff of Nancy (11.0-15.0) % Plt Count (150-400) K/uL MPV (7.40-12.00) fL Neut % (Auto) (48.0-80.0) % Lymph % (Auto) (16.0-40.0) % [place] % (Auto) (0.0-15.0) % Eos % (Auto) (0.0-7.0) % Baso % (Auto) (0.0-1.5) % Neut # (Auto) (1.4-5.7) K/uL Lymph # (Auto) (0.6-2.4) K/uL [place] # (Auto) (0.0-0.8) K/uL Eos # (Auto) (0.0-0.7) K/uL Baso # (Auto) (0.0-0.1) K/uL Nucleated RBC % /100WBC Nucleated RBCs # K/uL Sodium (136-145) mmol/L Potassium (3.5-5.1) mmol/L Chloride (98-107) mmol/L Carbon Dioxide (21.0-32.0) mmol/L BUN (7.0-18.0) mg/dL Creatinine (0.6-1.0) mg/dL Est Cr Clr Drug Dosing mL/min Estimated GFR (MDRD) ml/min Glucose (74-106) mg/dL POC Glucose 376 H 221 H (60-110) mg/dL Hemoglobin A1c (4.5-6.2) % Calcium (8.5-10.1) mg/dL Phosphorus (2.6-4.7) mg/dL Magnesium (1.8-2.4) mg/dL Troponin I (0.000-0.056) ng/mL Lipase 64 L (73-393) U/L 04/25/20 Range/Units 13:28 WBC (4.0-11.0) K/uL RBC (4.30-5.90) M/uL Hgb (12.0-16.0) g/dL Hct (36.0-46.0) % MCV (80.0-98.0) fL MCH (27.0-32.0) pg MCHC (31.0-37.0) g/dL RDW Std Deviation (28.0-62.0) fl RDW Coeff of Nancy (11.0-15.0) % Plt Count (150-400) K/uL MPV (7.40-12.00) fL Neut % (Auto) (48.0-80.0) % Lymph % (Auto) (16.0-40.0) % Daggett % (Auto) (0.0-15.0) % Eos % (Auto) (0.0-7.0) % Baso % (Auto) (0.0-1.5) % Neut # (Auto) (1.4-5.7) K/uL Lymph # (Auto) (0.6-2.4) K/uL Daggett # (Auto) (0.0-0.8) K/uL Eos # (Auto) (0.0-0.7) K/uL Baso # (Auto) (0.0-0.1) K/uL Nucleated RBC % /100WBC Nucleated RBCs # K/uL Sodium (136-145) mmol/L Potassium (3.5-5.1) mmol/L Chloride (98-107) mmol/L Carbon Dioxide (21.0-32.0) mmol/L BUN (7.0-18.0) mg/dL Creatinine (0.6-1.0) mg/dL Est Cr Clr Drug Dosing mL/min Estimated GFR (MDRD) ml/min Glucose (74-106) mg/dL POC Glucose 148 H (60-110) mg/dL Hemoglobin A1c (4.5-6.2) % Calcium (8.5-10.1) mg/dL Phosphorus (2.6-4.7) mg/dL Magnesium (1.8-2.4) mg/dL Troponin I (0.000-0.056) ng/mL Lipase (73-393) U/L Result Diagrams: 04/25/20 06:25 04/25/20 06:25 Sepsis Event Note - Focused Exam Vital Signs: Vital Signs Temp Pulse Resp BP Pulse Ox 04/25/20 11:00 37.1 C 113 H 18 105/69 97 04/25/20 07:55 36.8 C 84 16 108/64 97 04/25/20 04:07 36.4 C 83 16 138/83 97 - Problem List (1) Pancreatitis SNOMED Code(s): 37118678 ICD Code: K85.90 - ACUTE PANCREATITIS WITHOUT NECROSIS OR INFECTION, UNSP Status: Acute Current Visit: Yes (2) Abdominal pain SNOMED Code(s): 93789171 ICD Code: R10.9 - UNSPECIFIED ABDOMINAL PAIN Status: Acute Current Visit: Yes (3) Port-A-Cath in place SNOMED Code(s): 866248810 ICD Code: Z95.828 - PRESENCE OF OTHER VASCULAR IMPLANTS AND GRAFTS Status: Acute Current Visit: Yes Orders Last 24hrs: Active Orders 24 hr Category Date Time Status EKG 12 Lead [EKG Documentation Completion] [RC] STAT Care 04/25/20 11:08 Active Clear Liquid Diet [DIET] Diet 04/25/20 Dinner Ordered HEPATIC FUNCTION PANEL,HFP [CHEM] Routine Lab 04/25/20 06:25 Received HYDROmorphone [Dilaudid] Med 04/24/20 17:32 Active 1 mg IVPUSH Q4H PRN LORazepam [Ativan] Med 04/25/20 11:09 Active 1 mg IVPUSH Q4H PRN Lactated Ringers [Ringers, Lactated] 1,000 ml Med 04/25/20 10:00 Active IV ASDIRECTED Promethazine [Phenergan] Med 04/25/20 11:09 Active 12.5 mg IM Q6H PRN oxyCODONE Med 04/24/20 17:32 Active 5 mg PO Q4H PRN Medication Orders Acetaminophen (Tylenol) 650 mg PO Q4H PRN PRN Reason: Pain (Mild 1-3)/fever Dextrose/Water (Dextrose 50% In Water) 50 ml IVPUSH Q6H PRN PRN Reason: Hypoglycemia Last Admin: 04/23/20 23:18 Dose: 25 ml Documented by: Admin: 04/23/20 20:42 Dose: 25 ml Documented by: Admin: 04/23/20 19:22 Dose: 25 ml Documented by: Admin: 04/23/20 17:41 Dose: 25 ml Documented by: SEAN Diphenhydramine HCl (Benadryl) 50 mg PO TID PRN PRN Reason: Itching Diphenhydramine HCl (Benadryl) 25 mg IVPUSH Q8H PRN PRN Reason: itching/allergies Last Admin: 04/25/20 12:51 Dose: 25 mg Documented by: Admin: 04/25/20 04:50 Dose: 25 mg Documented by: Admin: 04/24/20 20:43 Dose: 25 mg Documented by: Admin: 04/24/20 12:03 Dose: 25 mg Documented by: Admin: 04/24/20 03:40 Dose: 25 mg Documented by: Admin: 04/23/20 18:57 Dose: 25 mg Documented by: Admin: 04/23/20 10:28 Dose: 25 mg Documented by: CAIN Enoxaparin Sodium (Lovenox) 40 mg SUBCUT BEDTIME NIGEL Last Admin: 04/24/20 20:43 Dose: 40 mg Documented by: Admin: 04/23/20 20:53 Dose: 40 mg Documented by: Admin: 04/22/20 21:18 Dose: 40 mg Documented by: MEENA Hydromorphone HCl (Dilaudid) 1 mg IVPUSH Q4H PRN PRN Reason: Pain Last Admin: 04/25/20 12:48 Dose: 1 mg Documented by: Admin: 04/25/20 08:31 Dose: 1 mg Documented by: Admin: 04/25/20 04:12 Dose: 1 mg Documented by: Admin: 04/25/20 00:01 Dose: 1 mg Documented by: Admin: 04/24/20 19:41 Dose: 1 mg Documented by: MAISHA Pantoprazole Sodium 40 mg/ (Sodium Chloride) 10 mls @ 300 mls/hr IV Q24H [facility] Last Admin: 04/24/20 20:42 Dose: 300 mls/hr Documented by: Infusion: 04/23/20 20:53 Dose: 300 mls/hr Documented by: Admin: 04/23/20 20:51 Dose: 300 mls/hr Documented by: Infusion: 04/22/20 21:13 Dose: 300 mls/hr Documented by: Admin: 04/22/20 21:11 Dose: 300 mls/hr Documented by: MEENA Lactated Ringer's (Ringers, Lactated) 1,000 mls @ 125 mls/hr IV ASDIRECTED [facility] Last Admin: 04/25/20 10:04 Dose: 125 mls/hr Documented by: NANCY Insulin Aspart (Novolog) 0 unit SUBCUT TIDAC [facility]; Protocol Last Admin: 04/25/20 12:51 Dose: 4 units Documented by: Admin: 04/25/20 08:35 Dose: 10 units Documented by: Admin: 04/24/20 18:08 Dose: 10 units Documented by: Admin: 04/24/20 12:13 Dose: 2 units Documented by: CAROL Cosigned by: MAISHA Admin: 04/24/20 08:30 Dose: 8 units Documented by: Admin: 04/23/20 17:30 Dose: Not Given Documented by: Admin: 04/23/20 13:05 Dose: 6 units Documented by: Admin: 04/23/20 06:30 Dose: Not Given Documented by: Admin: 04/23/20 06:10 Dose: 4 units Documented by: Admin: 04/22/20 23:03 Dose: Not Given Documented by: MEENA Insulin Detemir (Levemir) 15 unit SUBCUT DAILY [facility] Last Admin: 04/25/20 09:49 Dose: 15 units Documented by: Admin: 04/24/20 09:51 Dose: 15 units Documented by: CAROL Borjaigned by: [id number] Admin: 04/23/20 10:33 Dose: 15 units Documented by: CAIN Lorazepam (Ativan) 1 mg IVPUSH Q4H PRN PRN Reason: Anxiety Last Admin: 04/25/20 12:06 Dose: 1 mg Documented by: NANCY Ondansetron HCl (Zofran) 4 mg IVPUSH Q4H PRN PRN Reason: Nausea/Vomiting Last Admin: 04/25/20 12:49 Dose: 4 mg Documented by: Admin: 04/25/20 08:35 Dose: 4 mg Documented by: Admin: 04/25/20 04:50 Dose: 4 mg Documented by: Admin: 04/25/20 00:47 Dose: 4 mg Documented by: Admin: 04/24/20 20:43 Dose: 4 mg Documented by: Admin: 04/24/20 16:22 Dose: 4 mg Documented by: Admin: 04/24/20 12:19 Dose: 4 mg Documented by: Admin: 04/24/20 08:23 Dose: 4 mg Documented by: Admin: 04/24/20 03:40 Dose: 4 mg Documented by: Admin: 04/23/20 23:24 Dose: 4 mg Documented by: Admin: 04/23/20 18:54 Dose: 4 mg Documented by: Admin: 04/23/20 14:32 Dose: 4 mg Documented by: Admin: 04/23/20 10:27 Dose: 4 mg Documented by: Admin: 04/23/20 05:56 Dose: 4 mg Documented by: Admin: 04/23/20 01:36 Dose: 4 mg Documented by: Admin: 04/22/20 21:10 Dose: 4 mg Documented by: MEENA Oxycodone HCl (Oxycodone) 5 mg PO Q4H PRN PRN Reason: Abdominal Pain Petrolatum (Aquaphor With Natural Healing) 0 gm TOP TID PRN PRN Reason: Dryness Last Admin: 04/24/20 23:59 Dose: 1 applic Documented by: ISAAC Promethazine HCl (Phenergan) 12.5 mg IM Q6H PRN PRN Reason: Nausea Last Admin: 04/25/20 12:07 Dose: 12.5 mg Documented by: NANCY Sodium Chloride (Saline Flush) 10 ml FLUSH ASDIRECTED PRN PRN Reason: Keep Vein Open Last Admin: 04/22/20 14:51 Dose: 10 ml Documented by: RUDDY Sodium Chloride (Saline Flush) 2.5 ml FLUSH ASDIRECTED PRN PRN Reason: Keep Vein Open Last Admin: 04/22/20 14:51 Dose: 2.5 ml Documented by: RUDDY Tizanidine HCl (Zanaflex) 12 mg PO TID NIGEL Last Admin: 04/25/20 05:16 Dose: Not Given Documented by: Admin: 04/24/20 22:54 Dose: Not Given Documented by: Admin: 04/24/20 15:05 Dose: Not Given Documented by: Admin: 04/24/20 06:19 Dose: Not Given Documented by: Admin: 04/23/20 21:55 Dose: Not Given Documented by: Admin: 04/23/20 14:38 Dose: Not Given Documented by: Admin: 04/23/20 06:30 Dose: Not Given Documented by: MEENA Assessment/Plan Comment:: I performed a history and physical exam of the patient and discussed management with resident. I have reviewed the residents note and agree with documented findings and plan unless otherwise specified in my note.
[2020-04-22] MEDS: Ondansetron 4 MG/2 ML SDV IVPUSH PRN (21:10)
[2020-04-22] MEDS: Pantoprazole 40 MG in Sodium Chloride 0.9% 10 ML IV SCH (21:11)
[2020-04-22] MEDS: Enoxaparin 40 MG/0.4 ML Syringe SUBCUT SCH (21:18)
[2020-04-22] MEDS ORDERED: 50% Dextrose in Water 50 ML Syringe ONE (21:33)
[2020-04-22] MEDS ORDERED: 50% Dextrose in Water 50 ML Syringe IVPUSH ONE (22:19)
[2020-04-22] MEDS: Dextrose 5%-Lactated Ringers 1,000 ML IV SCH (22:49)
[2020-04-22] MEDS ORDERED: Magnesium Sulfate/Water 2 GM/50 ML Premix Bag IV ONE (23:00)
[2020-04-22] MEDS ORDERED: Magnesium Sulfate/Water 2 GM/50 ML BAG IV ONE (23:00)
[2020-04-22] MEDS: Insulin Aspart 100 Units/ML 3 ML Pen SUBCUT SCH (23:03)
[2020-04-23] MEDS ORDERED: 50% Dextrose in Water 50 ML Syringe IVPUSH ONE (00:20)
[2020-04-23] MEDS: HYDROmorphone 2 MG/ML Syringe IVPUSH PRN ×7 (00:26→22:00)
[2020-04-23] MEDS: LORazepam 2 MG/ML SDV IVPUSH PRN ×6 (01:33→23:22)
[2020-04-23] MEDS: Ondansetron 4 MG/2 ML SDV IVPUSH PRN ×6 (01:36→23:24)
[2020-04-23] MEDS: Insulin Aspart 100 Units/ML 3 ML Pen SUBCUT SCH ×4 (06:10→17:30)
[2020-04-23] MEDS: Dextrose 5%-Lactated Ringers 1,000 ML IV SCH ×3 (06:16→20:45)
[2020-04-23 06:28] LABS: BLOOD UREA NITROGEN,BUN 11 mg/dL (7.0-18.0); CARBON DIOXIDE,CO2 25.2 mmol/L (21.0-32.0); CHLORIDE,CL 106 mmol/L (98-107); GLUCOSE RANDOM 226 mg/dL (74-106); POTASSIUM,K 4.2 mmol/L (3.5-5.1); SODIUM,NA 139 mmol/L (136-145)
[2020-04-23] MEDS: tiZANidine 4 MG Tab PO SCH ×3 (06:30→21:55)
[2020-04-23] MEDS ORDERED: Insulin Aspart 100 Units/ML 3 ML Pen SUBCUT SCH (07:30)
[2020-04-23] MEDS: diphenhydrAMINE 50 MG/ML SDV IVPUSH PRN ×2 (10:28→18:57)
[2020-04-23] MEDS ORDERED: Lactated Ringers 1,000 ML IV ONE (10:31)
[2020-04-23] MEDS: Insulin Detemir 100 Units/ML 3 ML Pen SUBCUT SCH (10:33)
--- NOTE | 2020-04-23 11:35 | PCM.PN ---
- General Info Date of Service: 04/23/20 Admission Dx/Problem (Free Text): Admission Diagnosis/Problem Admission Diagnosis/Problem Pancreatitis Subjective Update: patient states that she still feels nauseous, does not want to try any clears, requesting her Benadryl to be made IV route, denies fevers, chills, vomiting, bleeding - Review of Systems General: Reports: Weakness. Denies: Fever, Fatigue Pulmonary: Denies: Shortness of Breath, Pleuritic Chest Pain Cardiovascular: Denies: Chest Pain, Palpitations, Dyspnea on Exertion Gastrointestinal: Reports: Abdominal Pain, Decreased Appetite, Difficulty Swallowing, Flatus, Nausea. Denies: Constipation, Diarrhea, Hematochezia, Melena, Vomiting Genitourinary: Denies: Dysuria, Frequency, Burning Musculoskeletal: Reports: Back Pain - Patient Data Vitals - Most Recent: Last Vital Signs Temp 36.8 C 04/23/20 04:00 Pulse 74 04/23/20 04:00 Resp 18 04/23/20 04:00 BP 122/70 04/23/20 04:00 Pulse Ox 99 04/23/20 04:00 Weight - Most Recent: 58.468 kg I&O - Last 24 Hours: Intake & Output 04/22/20 04/23/20 04/23/20 22:59 06:59 14:59 Intake Total 0 Output Total 680 Balance -680 Lab Results Last 24 Hours: Laboratory Results - last 24 hr 04/22/20 04/22/20 04/22/20 Range/Units 14:24 14:40 14:40 WBC 9.22 (4.0-11.0) K/uL RBC 4.95 (4.30-5.90) M/uL Hgb 12.9 (12.0-16.0) g/dL Hct 40.0 (36.0-46.0) % MCV 80.8 (80.0-98.0) fL MCH 26.1 L (27.0-32.0) pg MCHC 32.3 (31.0-37.0) g/dL RDW Std Deviation 38.1 (28.0-62.0) fl RDW Coeff of Nancy 13 (11.0-15.0) % Plt Count 311 (150-400) K/uL MPV 10.40 (7.40-12.00) fL Neut % (Auto) 72.3 (48.0-80.0) % Lymph % (Auto) 22.0 (16.0-40.0) % Waller % (Auto) 4.2 (0.0-15.0) % Eos % (Auto) 1.3 (0.0-7.0) % Baso % (Auto) 0.2 (0.0-1.5) % Neut # (Auto) 6.7 H (1.4-5.7) K/uL Lymph # (Auto) 2.0 (0.6-2.4) K/uL Waller # (Auto) 0.4 (0.0-0.8) K/uL Eos # (Auto) 0.1 (0.0-0.7) K/uL Baso # (Auto) 0.0 (0.0-0.1) K/uL Nucleated RBC % 0.0 /100WBC Nucleated RBCs # 0 K/uL VBG pH (7.31-7.41) VBG pCO2 (35-45) mmHG VBG pO2 (30-40) mmHG VBG HCO3 (22-30) mEq/L VBG Total CO2 (41-51) mmol/L VBG Base Excess (-3.0-3.0) Sodium 133 L (136-145) mmol/L Potassium 4.4 (3.5-5.1) mmol/L Chloride 99 (98-107) mmol/L Carbon Dioxide 22.0 (21.0-32.0) mmol/L BUN 18 (7.0-18.0) mg/dL Creatinine 0.8 (0.6-1.0) mg/dL Est Cr Clr Drug Dosing 78.30 mL/min Estimated GFR (MDRD) > 60.0 ml/min Glucose 343 H (74-106) mg/dL POC Glucose 349 H (60-110) mg/dL Calcium 9.1 (8.5-10.1) mg/dL Phosphorus 4.2 (2.6-4.7) mg/dL Magnesium 1.7 L (1.8-2.4) mg/dL Total Bilirubin 0.2 (0.2-1.0) mg/dL AST 17 (15-37) IU/L ALT 30 (14-63) IU/L Alkaline Phosphatase 130 H (46-116) U/L Troponin I < 0.050 (0.000-0.056) ng/mL Total Protein 7.5 (6.4-8.2) g/dL Albumin 4.1 (3.4-5.0) g/dL Globulin 3.4 (2.6-4.0) g/dL Albumin/Globulin Ratio 1.2 (0.9-1.6) Lipase 492 H (73-393) U/L Urine Color Urine Appearance Urine pH (5.0-8.0) Ur Specific Enders (1.001-1.035) Urine Protein (NEGATIVE) mg/dL Urine Glucose (UA) (NEGATIVE) mg/dL Urine Ketones (NEGATIVE) mg/dL Urine Occult Blood (NEGATIVE) Urine Nitrite (NEGATIVE) Urine Bilirubin (NEGATIVE) Urine Urobilinogen (<2.0) EU/dL Ur Leukocyte Esterase (NEGATIVE) Urine RBC (0-2/HPF) Urine WBC (0-5/HPF) Ur Epithelial Cells (NONE-FEW) Urine Bacteria (NEGATIVE) Urine HCG, Qual (NEGATIVE) SARS-CoV-2 RNA (JACLYN) (NEGATIVE) 04/22/20 04/22/20 04/22/20 Range/Units 14:40 14:42 14:42 WBC (4.0-11.0) K/uL RBC (4.30-5.90) M/uL Hgb (12.0-16.0) g/dL Hct (36.0-46.0) % MCV (80.0-98.0) fL MCH (27.0-32.0) pg MCHC (31.0-37.0) g/dL RDW Std Deviation (28.0-62.0) fl RDW Coeff of Nancy (11.0-15.0) % Plt Count (150-400) K/uL MPV (7.40-12.00) fL Neut % (Auto) (48.0-80.0) % Lymph % (Auto) (16.0-40.0) % Waller % (Auto) (0.0-15.0) % Eos % (Auto) (0.0-7.0) % Baso % (Auto) (0.0-1.5) % Neut # (Auto) (1.4-5.7) K/uL Lymph # (Auto) (0.6-2.4) K/uL Waller # (Auto) (0.0-0.8) K/uL Eos # (Auto) (0.0-0.7) K/uL Baso # (Auto) (0.0-0.1) K/uL Nucleated RBC % /100WBC Nucleated RBCs # K/uL VBG pH 7.39 (7.31-7.41) VBG pCO2 36 (35-45) mmHG VBG pO2 41 H (30-40) mmHG VBG HCO3 22 (22-30) mEq/L VBG Total CO2 20 L (41-51) mmol/L VBG Base Excess -2.9 (-3.0-3.0) Sodium (136-145) mmol/L Potassium (3.5-5.1) mmol/L Chloride (98-107) mmol/L Carbon Dioxide (21.0-32.0) mmol/L BUN (7.0-18.0) mg/dL Creatinine (0.6-1.0) mg/dL Est Cr Clr Drug Dosing mL/min Estimated GFR (MDRD) ml/min Glucose (74-106) mg/dL POC Glucose (60-110) mg/dL Calcium (8.5-10.1) mg/dL Phosphorus (2.6-4.7) mg/dL Magnesium (1.8-2.4) mg/dL Total Bilirubin (0.2-1.0) mg/dL AST (15-37) IU/L ALT (14-63) IU/L Alkaline Phosphatase (46-116) U/L Troponin I (0.000-0.056) ng/mL Total Protein (6.4-8.2) g/dL Albumin (3.4-5.0) g/dL Globulin (2.6-4.0) g/dL Albumin/Globulin Ratio (0.9-1.6) Lipase (73-393) U/L Urine Color YELLOW Urine Appearance CLEAR Urine pH 5.5 (5.0-8.0) Ur Specific Enders 1.010 (1.001-1.035) Urine Protein NEGATIVE (NEGATIVE) mg/dL Urine Glucose (UA) >=1000 (NEGATIVE) mg/dL Urine Ketones 15 H (NEGATIVE) mg/dL Urine Occult Blood SMALL H (NEGATIVE) Urine Nitrite NEGATIVE (NEGATIVE) Urine Bilirubin NEGATIVE (NEGATIVE) Urine Urobilinogen 0.2 (<2.0) EU/dL Ur Leukocyte Esterase NEGATIVE (NEGATIVE) Urine RBC 0-2 (0-2/HPF) Urine WBC 0-1 (0-5/HPF) Ur Epithelial Cells FEW (NONE-FEW) Urine Bacteria FEW (NEGATIVE) Urine HCG, Qual NEGATIVE (NEGATIVE) SARS-CoV-2 RNA (JACLYN) (NEGATIVE) 04/22/20 04/22/20 04/22/20 Range/Units 18:20 18:26 21:24 WBC (4.0-11.0) K/uL RBC (4.30-5.90) M/uL Hgb (12.0-16.0) g/dL Hct (36.0-46.0) % MCV (80.0-98.0) fL MCH (27.0-32.0) pg MCHC (31.0-37.0) g/dL RDW Std Deviation (28.0-62.0) fl RDW Coeff of Nancy (11.0-15.0) % Plt Count (150-400) K/uL MPV (7.40-12.00) fL Neut % (Auto) (48.0-80.0) % Lymph % (Auto) (16.0-40.0) % Waller % (Auto) (0.0-15.0) % Eos % (Auto) (0.0-7.0) % Baso % (Auto) (0.0-1.5) % Neut # (Auto) (1.4-5.7) K/uL Lymph # (Auto) (0.6-2.4) K/uL Waller # (Auto) (0.0-0.8) K/uL Eos # (Auto) (0.0-0.7) K/uL Baso # (Auto) (0.0-0.1) K/uL Nucleated RBC % /100WBC Nucleated RBCs # K/uL VBG pH (7.31-7.41) VBG pCO2 (35-45) mmHG VBG pO2 (30-40) mmHG VBG HCO3 (22-30) mEq/L VBG Total CO2 (41-51) mmol/L VBG Base Excess (-3.0-3.0) Sodium (136-145) mmol/L Potassium (3.5-5.1) mmol/L Chloride (98-107) mmol/L Carbon Dioxide (21.0-32.0) mmol/L BUN (7.0-18.0) mg/dL Creatinine (0.6-1.0) mg/dL Est Cr Clr Drug Dosing mL/min Estimated GFR (MDRD) ml/min Glucose (74-106) mg/dL POC Glucose 88 59 L (60-110) mg/dL Calcium (8.5-10.1) mg/dL Phosphorus (2.6-4.7) mg/dL Magnesium (1.8-2.4) mg/dL Total Bilirubin (0.2-1.0) mg/dL AST (15-37) IU/L ALT (14-63) IU/L Alkaline Phosphatase (46-116) U/L Troponin I (0.000-0.056) ng/mL Total Protein (6.4-8.2) g/dL Albumin (3.4-5.0) g/dL Globulin (2.6-4.0) g/dL Albumin/Globulin Ratio (0.9-1.6) Lipase (73-393) U/L Urine Color Urine Appearance Urine pH (5.0-8.0) Ur Specific Enders (1.001-1.035) Urine Protein (NEGATIVE) mg/dL Urine Glucose (UA) (NEGATIVE) mg/dL Urine Ketones (NEGATIVE) mg/dL Urine Occult Blood (NEGATIVE) Urine Nitrite (NEGATIVE) Urine Bilirubin (NEGATIVE) Urine Urobilinogen (<2.0) EU/dL Ur Leukocyte Esterase (NEGATIVE) Urine RBC (0-2/HPF) Urine WBC (0-5/HPF) Ur Epithelial Cells (NONE-FEW) Urine Bacteria (NEGATIVE) Urine HCG, Qual (NEGATIVE) SARS-CoV-2 RNA (JACLYN) NEGATIVE (NEGATIVE) 04/22/20 04/23/20 04/23/20 Range/Units 22:52 00:15 05:53 WBC 4.71 (4.0-11.0) K/uL RBC 3.97 L (4.30-5.90) M/uL Hgb 10.4 L (12.0-16.0) g/dL Hct 32.7 L (36.0-46.0) % MCV 82.4 (80.0-98.0) fL MCH 26.2 L (27.0-32.0) pg MCHC 31.8 (31.0-37.0) g/dL RDW Std Deviation 39.0 (28.0-62.0) fl RDW Coeff of Nancy 13 (11.0-15.0) % Plt Count 235 (150-400) K/uL MPV 10.30 (7.40-12.00) fL Neut % (Auto) 36.8 L (48.0-80.0) % Lymph % (Auto) 52.9 H (16.0-40.0) % Waller % (Auto) 5.9 (0.0-15.0) % Eos % (Auto) 4.2 (0.0-7.0) % Baso % (Auto) 0.2 (0.0-1.5) % Neut # (Auto) 1.7 (1.4-5.7) K/uL Lymph # (Auto) 2.5 H (0.6-2.4) K/uL Waller # (Auto) 0.3 (0.0-0.8) K/uL Eos # (Auto) 0.2 (0.0-0.7) K/uL Baso # (Auto) 0.0 (0.0-0.1) K/uL Nucleated RBC % 0.0 /100WBC Nucleated RBCs # 0 K/uL VBG pH (7.31-7.41) VBG pCO2 (35-45) mmHG VBG pO2 (30-40) mmHG VBG HCO3 (22-30) mEq/L VBG Total CO2 (41-51) mmol/L VBG Base Excess (-3.0-3.0) Sodium (136-145) mmol/L Potassium (3.5-5.1) mmol/L Chloride (98-107) mmol/L Carbon Dioxide (21.0-32.0) mmol/L BUN (7.0-18.0) mg/dL Creatinine (0.6-1.0) mg/dL Est Cr Clr Drug Dosing mL/min Estimated GFR (MDRD) ml/min Glucose (74-106) mg/dL POC Glucose 83 98 (60-110) mg/dL Calcium (8.5-10.1) mg/dL Phosphorus (2.6-4.7) mg/dL Magnesium (1.8-2.4) mg/dL Total Bilirubin (0.2-1.0) mg/dL AST (15-37) IU/L ALT (14-63) IU/L Alkaline Phosphatase (46-116) U/L Troponin I (0.000-0.056) ng/mL Total Protein (6.4-8.2) g/dL Albumin (3.4-5.0) g/dL Globulin (2.6-4.0) g/dL Albumin/Globulin Ratio (0.9-1.6) Lipase (73-393) U/L Urine Color Urine Appearance Urine pH (5.0-8.0) Ur Specific Enders (1.001-1.035) Urine Protein (NEGATIVE) mg/dL Urine Glucose (UA) (NEGATIVE) mg/dL Urine Ketones (NEGATIVE) mg/dL Urine Occult Blood (NEGATIVE) Urine Nitrite (NEGATIVE) Urine Bilirubin (NEGATIVE) Urine Urobilinogen (<2.0) EU/dL Ur Leukocyte Esterase (NEGATIVE) Urine RBC (0-2/HPF) Urine WBC (0-5/HPF) Ur Epithelial Cells (NONE-FEW) Urine Bacteria (NEGATIVE) Urine HCG, Qual (NEGATIVE) SARS-CoV-2 RNA (JACLYN) (NEGATIVE) 04/23/20 04/23/20 Range/Units 05:53 06:01 WBC (4.0-11.0) K/uL RBC (4.30-5.90) M/uL Hgb (12.0-16.0) g/dL Hct (36.0-46.0) % MCV (80.0-98.0) fL MCH (27.0-32.0) pg MCHC (31.0-37.0) g/dL RDW Std Deviation (28.0-62.0) fl RDW Coeff of Nancy (11.0-15.0) % Plt Count (150-400) K/uL MPV (7.40-12.00) fL Neut % (Auto) (48.0-80.0) % Lymph % (Auto) (16.0-40.0) % Waller % (Auto) (0.0-15.0) % Eos % (Auto) (0.0-7.0) % Baso % (Auto) (0.0-1.5) % Neut # (Auto) (1.4-5.7) K/uL Lymph # (Auto) (0.6-2.4) K/uL Waller # (Auto) (0.0-0.8) K/uL Eos # (Auto) (0.0-0.7) K/uL Baso # (Auto) (0.0-0.1) K/uL Nucleated RBC % /100WBC Nucleated RBCs # K/uL VBG pH (7.31-7.41) VBG pCO2 (35-45) mmHG VBG pO2 (30-40) mmHG VBG HCO3 (22-30) mEq/L VBG Total CO2 (41-51) mmol/L VBG Base Excess (-3.0-3.0) Sodium 139 (136-145) mmol/L Potassium 4.2 (3.5-5.1) mmol/L Chloride 106 (98-107) mmol/L Carbon Dioxide 25.2 (21.0-32.0) mmol/L BUN 11 (7.0-18.0) mg/dL Creatinine 0.6 (0.6-1.0) mg/dL Est Cr Clr Drug Dosing 104.40 mL/min Estimated GFR (MDRD) > 60.0 ml/min Glucose 226 H (74-106) mg/dL POC Glucose 221 H (60-110) mg/dL Calcium 8.1 L (8.5-10.1) mg/dL Phosphorus (2.6-4.7) mg/dL Magnesium (1.8-2.4) mg/dL Total Bilirubin 0.2 (0.2-1.0) mg/dL AST 17 (15-37) IU/L ALT 23 (14-63) IU/L Alkaline Phosphatase 78 (46-116) U/L Troponin I (0.000-0.056) ng/mL Total Protein 5.6 L (6.4-8.2) g/dL Albumin 3.0 L (3.4-5.0) g/dL Globulin 2.6 (2.6-4.0) g/dL Albumin/Globulin Ratio 1.2 (0.9-1.6) Lipase (73-393) U/L Urine Color Urine Appearance Urine pH (5.0-8.0) Ur Specific Enders (1.001-1.035) Urine Protein (NEGATIVE) mg/dL Urine Glucose (UA) (NEGATIVE) mg/dL Urine Ketones (NEGATIVE) mg/dL Urine Occult Blood (NEGATIVE) Urine Nitrite (NEGATIVE) Urine Bilirubin (NEGATIVE) Urine Urobilinogen (<2.0) EU/dL Ur Leukocyte Esterase (NEGATIVE) Urine RBC (0-2/HPF) Urine WBC (0-5/HPF) Ur Epithelial Cells (NONE-FEW) Urine Bacteria (NEGATIVE) Urine HCG, Qual (NEGATIVE) SARS-CoV-2 RNA (JACLYN) (NEGATIVE) Med Orders - Current: Current Medications Acetaminophen (Tylenol) 650 mg PO Q4H PRN PRN Reason: Pain (Mild 1-3)/fever Dextrose/Water (Dextrose 50% In Water) 50 ml IVPUSH Q6H PRN PRN Reason: Hypoglycemia Diphenhydramine HCl (Benadryl) 50 mg PO TID PRN PRN Reason: Itching Diphenhydramine HCl (Benadryl) 25 mg IVPUSH Q8H PRN PRN Reason: itching/allergies Last Admin: 04/23/20 10:28 Dose: 25 mg Documented by: Enoxaparin Sodium (Lovenox) 40 mg SUBCUT BEDTIME [facility] Last Admin: 04/22/20 21:18 Dose: 40 mg Documented by: Hydromorphone HCl (Dilaudid) 1 mg IVPUSH Q3H PRN PRN Reason: Pain Last Admin: 04/23/20 09:40 Dose: 1 mg Documented by: Pantoprazole Sodium 40 mg/ (Sodium Chloride) 10 mls @ 300 mls/hr IV Q24H [facility] Last Admin: 04/22/20 21:11 Dose: 300 mls/hr Documented by: Dextrose/Lactated Ringer's (Dextrose 5%-Lactated Ringers) 1,000 mls @ 125 mls/hr IV ASDIRECTED [facility] Last Admin: 04/23/20 06:16 Dose: 125 mls/hr Documented by: Insulin Aspart (Novolog) 0 unit SUBCUT TIDAC [facility]; Protocol Last Admin: 04/23/20 06:30 Dose: Not Given Documented by: Insulin Detemir (Levemir) 15 unit SUBCUT DAILY [facility] Last Admin: 04/23/20 10:33 Dose: 15 units Documented by: Lorazepam (Ativan) 1 mg IVPUSH Q4H PRN PRN Reason: Anxiety Last Admin: 04/23/20 10:50 Dose: 1 mg Documented by: Ondansetron HCl (Zofran) 4 mg IVPUSH Q4H PRN PRN Reason: Nausea/Vomiting Last Admin: 04/23/20 10:27 Dose: 4 mg Documented by: Petrolatum (Aquaphor With Natural Healing) 0 gm TOP TID PRN PRN Reason: Dryness Sodium Chloride (Saline Flush) 10 ml FLUSH ASDIRECTED PRN PRN Reason: Keep Vein Open Last Admin: 04/22/20 14:51 Dose: 10 ml Documented by: Sodium Chloride (Saline Flush) 2.5 ml FLUSH ASDIRECTED PRN PRN Reason: Keep Vein Open Last Admin: 04/22/20 14:51 Dose: 2.5 ml Documented by: Tizanidine HCl (Zanaflex) 12 mg PO TID [facility] Last Admin: 04/23/20 06:30 Dose: Not Given Documented by: Discontinued Medications Dextrose/Water (Dextrose 50% In Water) Confirm Administered Dose 50 ml .ROUTE .STK-MED ONE Stop: 04/22/20 21:34 Last Admin: 04/22/20 23:08 Dose: Not Given Documented by: Dextrose/Water (Dextrose 50% In Water) 25 ml IVPUSH ONETIME ONE Stop: 04/22/20 22:20 Last Admin: 04/22/20 22:47 Dose: 25 ml Documented by: Dextrose/Water (Dextrose 50% In Water) 25 ml IVPUSH ONETIME ONE Stop: 04/23/20 00:21 Last Admin: 04/23/20 00:25 Dose: 25 ml Documented by: Diphenhydramine HCl (Benadryl) 50 mg IVPUSH ONETIME ONE Stop: 04/22/20 18:04 Last Admin: 04/22/20 18:27 Dose: 50 mg Documented by: Diphenhydramine HCl (Benadryl) 25 mg IVPUSH ONETIME ONE Stop: 04/22/20 22:22 Last Admin: 04/22/20 22:47 Dose: 25 mg Documented by: Famotidine (Pepcid) 20 mg IVPUSH ONETIME ONE Stop: 04/22/20 14:31 Last Admin: 04/22/20 14:51 Dose: 20 mg Documented by: Hydromorphone HCl (Dilaudid) 0.5 mg IVPUSH Q2H PRN PRN Reason: Pain Last Admin: 04/22/20 21:04 Dose: 0.5 mg Documented by: Sodium Chloride (Normal Saline) 1,000 mls @ 999 mls/hr IV .Bolus ONE Stop: 04/22/20 15:30 Last Admin: 04/22/20 14:50 Dose: 999 mls/hr Documented by: Sodium Chloride (Normal Saline) 1,000 mls @ 999 mls/hr IV .Bolus ONE Stop: 04/22/20 15:36 Last Admin: 04/22/20 14:51 Dose: 999 mls/hr Documented by: Lactated Ringer's (Ringers, Lactated) 1,000 mls [facility] Admin: 04/22/20 21:01 Dose: 125 mls/hr Documented by: Magnesium Sulfate (Magnesium Sulfate In Water Premix) 2 gm in 50 mls @ 25 mls/hr IV NOW ONE Stop: 04/23/20 00:59 Last Admin: 04/22/20 23:18 Dose: 25 mls/hr Documented by: Lactated Ringer's (Ringers, Lactated) 1,000 mls @ 999 mls/hr IV .BOLUS ONE Stop: 04/23/20 11:31 Last Admin: 04/23/20 10:56 Dose: 999 mls/hr Documented by: [facility]ulin [facility] ([facility]) [facility] Protocol Iopamidol (Isovue-370 (76%)) 66 ml IVPUSH ONETIME ONE Stop: 04/22/20 16:40 Last Admin: 04/22/20 16:39 Dose: 66 ml Documented by: Lorazepam (Ativan) 1 mg IVPUSH ONETIME ONE Stop: 04/22/20 15:57 Last Admin: 04/22/20 16:12 Dose: 1 mg Documented by: Lorazepam (Ativan) 0.5 mg IVPUSH Q4H PRN PRN Reason: Anxiety Last Admin: 04/22/20 21:16 Dose: 0.5 mg Documented by: Morphine Sulfate (Morphine) 4 mg IVPUSH ONETIME ONE Stop: 04/22/20 15:04 Last Admin: 04/22/20 15:19 Dose: 4 mg Documented by: Morphine Sulfate (Morphine) 4 mg IVPUSH ONETIME ONE Stop: 04/22/20 17:10 Last Admin: 04/22/20 17:24 Dose: 4 mg Documented by: Ondansetron HCl (Zofran) 4 mg IVPUSH ONETIME ONE Stop: 04/22/20 14:31 Last Admin: 04/22/20 14:51 Dose: 4 mg Documented by: - Exam General: Alert, Oriented Neck: Supple, Trachea Midline Lungs: Clear to Auscultation, Normal Respiratory Effort Cardiovascular: Regular Rate, Regular Rhythm GI/Abdominal Exam: Normal Bowel Sounds, Soft, Guarding, Tender. No: Non-Tender, Hepatomegaly, Splenomegaly Sepsis Event Note - Evaluation Sepsis Screening Result: No Definite Risk - Focused Exam Vital Signs: Vital Signs Temp Pulse Resp BP Pulse Ox 04/23/20 04:00 36.8 C 74 18 122/70 99 04/23/20 00:40 36.8 C 84 18 118/68 98 - Problem List & Annotations (1) Pancreatitis SNOMED Code(s): 02718581 Code(s): K85.90 - ACUTE PANCREATITIS WITHOUT NECROSIS OR INFECTION, UNSP Status: Acute Current Visit: Yes (2) Abdominal pain SNOMED Code(s): 83707226 Code(s): R10.9 - UNSPECIFIED ABDOMINAL PAIN Status: Acute Current Visit: Yes (3) Port-A-Cath in place SNOMED Code(s): 643343847 Code(s): Z95.828 - PRESENCE OF OTHER VASCULAR IMPLANTS AND GRAFTS Status: Acute Current Visit: Yes - Problem List Review Problem List Initiated/Reviewed/Updated: Yes - My Orders Last 24 Hours: My Active Orders 04/22/20 22:30 Dextrose 5%-Lactated Ringers 1,000 ml IV ASDIRECTED 04/22/20 22:52 Insulin Aspart [NovoLOG] See Protocol SUBCUT TIDAC 04/22/20 22:53 HYDROmorphone [Dilaudid] 1 mg IVPUSH Q3H PRN 04/22/20 22:54 LORazepam [Ativan] 1 mg IVPUSH Q4H PRN 04/22/20 23:17 Accu Check [Blood Glucose Check, Bedside] [RC] Q6H 04/22/20 23:18 Dextrose 50% in Water 50 ml IVPUSH Q6H PRN diphenhydrAMINE [Benadryl] 50 mg PO TID PRN 04/23/20 06:00 tiZANidine [Zanaflex] 12 mg PO TID 04/23/20 09:00 Insulin Detemir [Levemir] 15 unit SUBCUT DAILY - Plan Plan:: Assessment/Plan: Acute Pancreatitis- NPO,advance diet as tolerated, 125ml/hr LR, (Patient received 2L NS bolus in the ED), Dilaudid 0.5mg, Zofran 4mg, PPI 40mg daily, Hyperglycemia- Secondary to DM 1, Insulin sliding scale, IV FLUIDS, continue Levemir, PMH Anxiety, Bipolar- continue Home meds
[2020-04-23] MEDS: 50% Dextrose in Water 50 ML Syringe IVPUSH PRN ×4 (17:41→23:18)
[2020-04-23] MEDS: Pantoprazole 40 MG in Sodium Chloride 0.9% 10 ML IV SCH (20:51)
[2020-04-23] MEDS: Enoxaparin 40 MG/0.4 ML Syringe SUBCUT SCH (20:53)
[2020-04-24] MEDS: HYDROmorphone 2 MG/ML Syringe IVPUSH PRN ×2 (01:05→04:39)
[2020-04-24] MEDS: LORazepam 2 MG/ML SDV IVPUSH PRN ×4 (03:40→16:22)
[2020-04-24] MEDS: Ondansetron 4 MG/2 ML SDV IVPUSH PRN ×5 (03:40→20:43)
[2020-04-24] MEDS: diphenhydrAMINE 50 MG/ML SDV IVPUSH PRN ×3 (03:40→20:43)
[2020-04-24] MEDS: Dextrose 5%-Lactated Ringers 1,000 ML IV SCH ×2 (04:41→20:42)
[2020-04-24 06:13] LABS: BLOOD UREA NITROGEN,BUN 6 mg/dL (7.0-18.0); CHLORIDE,CL 104 mmol/L (98-107); GLUCOSE RANDOM 290 mg/dL (74-106); POTASSIUM,K 4.1 mmol/L (3.5-5.1); SODIUM,NA 138 mmol/L (136-145)
[2020-04-24] MEDS: tiZANidine 4 MG Tab PO SCH ×3 (06:19→22:54)
[2020-04-24] MEDS: HYDROmorphone 1 MG/ML Syringe IVPUSH PRN ×4 (08:23→19:41)
[2020-04-24] MEDS: Insulin Aspart 100 Units/ML 3 ML Pen SUBCUT SCH ×3 (08:30→18:08)
[2020-04-24] MEDS: Insulin Detemir 100 Units/ML 3 ML Pen SUBCUT SCH (09:51)
[2020-04-24] MEDS ORDERED: Magnesium Sulfate/Water 4 GM in Premix Bag 1 BAG IV ONE (10:13)
--- NOTE | 2020-04-24 12:09 | PCM.PN ---
- General Info Date of Service: 05/01/20 Admission Dx/Problem (Free Text): Admission Diagnosis/Problem Admission Diagnosis/Problem Pancreatitis Subjective Update: patient states that she still feels nauseous, current still is in abdominal pain. Patient seems to have very exaggerated response upon very mild palpation of the abdomen, agreed to try clear diet today - Review of Systems General: Denies: Weakness, Fatigue Pulmonary: Denies: Shortness of Breath, Pleuritic Chest Pain Cardiovascular: Denies: Chest Pain, Palpitations Gastrointestinal: Reports: Abdominal Pain, Decreased Appetite, Flatus, Nausea. Denies: Constipation, Diarrhea, Difficulty Swallowing, Melena, Vomiting Genitourinary: Denies: Dysuria, Frequency, Burning Musculoskeletal: Denies: Neck Pain, Shoulder Pain, Arm Pain Skin: Denies: Cyanosis, Jaundice, Mottled - Patient Data Vitals - Most Recent: Last Vital Signs Temp 36.9 C 04/24/20 12:00 Pulse 90 04/24/20 12:00 Resp 16 04/24/20 12:00 BP 125/73 04/24/20 12:00 Pulse Ox 96 04/24/20 12:00 Weight - Most Recent: 58.468 kg I&O - Last 24 Hours: Intake & Output 04/23/20 04/24/20 04/24/20 22:59 06:59 14:59 Intake Total 10 1489 Output Total 900 2500 Balance -890 -1011 Lab Results Last 24 Hours: Laboratory Results - last 24 hr 04/23/20 04/23/20 04/23/20 Range/Units 12:07 17:30 18:32 WBC (4.0-11.0) K/uL RBC (4.30-5.90) M/uL Hgb (12.0-16.0) g/dL Hct (36.0-46.0) % MCV (80.0-98.0) fL MCH (27.0-32.0) pg MCHC (31.0-37.0) g/dL RDW Std Deviation (28.0-62.0) fl RDW Coeff of Nancy (11.0-15.0) % Plt Count (150-400) K/uL MPV (7.40-12.00) fL Neut % (Auto) (48.0-80.0) % Lymph % (Auto) (16.0-40.0) % [place] % (Auto) (0.0-15.0) % Eos % (Auto) (0.0-7.0) % Baso % (Auto) (0.0-1.5) % Neut # (Auto) (1.4-5.7) K/uL Lymph # (Auto) (0.6-2.4) K/uL [place] # (Auto) (0.0-0.8) K/uL Eos # (Auto) (0.0-0.7) K/uL Baso # (Auto) (0.0-0.1) K/uL Nucleated RBC % /100WBC Nucleated RBCs # K/uL Sodium (136-145) mmol/L Potassium (3.5-5.1) mmol/L Chloride (98-107) mmol/L Carbon Dioxide (21.0-32.0) mmol/L BUN (7.0-18.0) mg/dL Creatinine (0.6-1.0) mg/dL Est Cr Clr Drug Dosing mL/min Estimated GFR (MDRD) ml/min Glucose (74-106) mg/dL POC Glucose 255 H 73 101 (60-110) mg/dL Calcium (8.5-10.1) mg/dL Phosphorus (2.6-4.7) mg/dL Magnesium (1.8-2.4) mg/dL Lipase (73-393) U/L 04/23/20 04/23/20 04/23/20 Range/Units 19:16 20:32 21:52 WBC (4.0-11.0) K/uL RBC (4.30-5.90) M/uL Hgb (12.0-16.0) g/dL Hct (36.0-46.0) % MCV (80.0-98.0) fL MCH (27.0-32.0) pg MCHC (31.0-37.0) g/dL RDW Std Deviation (28.0-62.0) fl RDW Coeff of Nancy (11.0-15.0) % Plt Count (150-400) K/uL MPV (7.40-12.00) fL Neut % (Auto) (48.0-80.0) % Lymph % (Auto) (16.0-40.0) % [place] % (Auto) (0.0-15.0) % Eos % (Auto) (0.0-7.0) % Baso % (Auto) (0.0-1.5) % Neut # (Auto) (1.4-5.7) K/uL Lymph # (Auto) (0.6-2.4) K/uL [place] # (Auto) (0.0-0.8) K/uL Eos # (Auto) (0.0-0.7) K/uL Baso # (Auto) (0.0-0.1) K/uL Nucleated RBC % /100WBC Nucleated RBCs # K/uL Sodium (136-145) mmol/L Potassium (3.5-5.1) mmol/L Chloride (98-107) mmol/L Carbon Dioxide (21.0-32.0) mmol/L BUN (7.0-18.0) mg/dL Creatinine (0.6-1.0) mg/dL Est Cr Clr Drug Dosing mL/min Estimated GFR (MDRD) ml/min Glucose (74-106) mg/dL POC Glucose 73 93 100 (60-110) mg/dL Calcium (8.5-10.1) mg/dL Phosphorus (2.6-4.7) mg/dL Magnesium (1.8-2.4) mg/dL Lipase (73-393) U/L 04/23/20 04/24/20 04/24/20 Range/Units 23:15 00:18 05:00 WBC 4.89 (4.0-11.0) K/uL RBC 3.95 L (4.30-5.90) M/uL Hgb 10.3 L (12.0-16.0) g/dL Hct 32.7 L (36.0-46.0) % MCV 82.8 (80.0-98.0) fL MCH 26.1 L (27.0-32.0) pg MCHC 31.5 (31.0-37.0) g/dL RDW Std Deviation 39.0 (28.0-62.0) fl RDW Coeff of Nancy 13 (11.0-15.0) % Plt Count 232 (150-400) K/uL MPV 10.50 (7.40-12.00) fL Neut % (Auto) 50.0 (48.0-80.0) % Lymph % (Auto) 42.1 H (16.0-40.0) % [place] % (Auto) 5.7 (0.0-15.0) % Eos % (Auto) 2.0 (0.0-7.0) % Baso % (Auto) 0.2 (0.0-1.5) % Neut # (Auto) 2.4 (1.4-5.7) K/uL Lymph # (Auto) 2.1 (0.6-2.4) K/uL [place] # (Auto) 0.3 (0.0-0.8) K/uL Eos # (Auto) 0.1 (0.0-0.7) K/uL Baso # (Auto) 0.0 (0.0-0.1) K/uL Nucleated RBC % 0.0 /100WBC Nucleated RBCs # 0 K/uL Sodium (136-145) mmol/L Potassium (3.5-5.1) mmol/L Chloride (98-107) mmol/L Carbon Dioxide (21.0-32.0) mmol/L BUN (7.0-18.0) mg/dL Creatinine (0.6-1.0) mg/dL Est Cr Clr Drug Dosing mL/min Estimated GFR (MDRD) ml/min Glucose (74-106) mg/dL POC Glucose 73 155 H (60-110) mg/dL Calcium (8.5-10.1) mg/dL Phosphorus (2.6-4.7) mg/dL Magnesium (1.8-2.4) mg/dL Lipase (73-393) U/L 04/24/20 04/24/20 04/24/20 Range/Units 05:00 05:00 06:04 WBC (4.0-11.0) K/uL RBC (4.30-5.90) M/uL Hgb (12.0-16.0) g/dL Hct (36.0-46.0) % MCV (80.0-98.0) fL MCH (27.0-32.0) pg MCHC (31.0-37.0) g/dL RDW Std Deviation (28.0-62.0) fl RDW Coeff of Nancy (11.0-15.0) % Plt Count (150-400) K/uL MPV (7.40-12.00) fL Neut % (Auto) (48.0-80.0) % Lymph % (Auto) (16.0-40.0) % [place] % (Auto) (0.0-15.0) % Eos % (Auto) (0.0-7.0) % Baso % (Auto) (0.0-1.5) % Neut # (Auto) (1.4-5.7) K/uL Lymph # (Auto) (0.6-2.4) K/uL [place] # (Auto) (0.0-0.8) K/uL Eos # (Auto) (0.0-0.7) K/uL Baso # (Auto) (0.0-0.1) K/uL Nucleated RBC % /100WBC Nucleated RBCs # K/uL Sodium 138 (136-145) mmol/L Potassium 4.1 (3.5-5.1) mmol/L Chloride 104 (98-107) mmol/L Carbon Dioxide 26.0 (21.0-32.0) mmol/L BUN 6 L (7.0-18.0) mg/dL Creatinine 0.6 (0.6-1.0) mg/dL Est Cr Clr Drug Dosing 104.40 mL/min Estimated GFR (MDRD) > 60.0 ml/min Glucose 290 H (74-106) mg/dL POC Glucose 290 H (60-110) mg/dL Calcium 8.2 L (8.5-10.1) mg/dL Phosphorus 4.0 (2.6-4.7) mg/dL Magnesium 1.5 L (1.8-2.4) mg/dL Lipase 97 (73-393) U/L 04/24/20 Range/Units 07:22 WBC (4.0-11.0) K/uL RBC (4.30-5.90) M/uL Hgb (12.0-16.0) g/dL Hct (36.0-46.0) % MCV (80.0-98.0) fL MCH (27.0-32.0) pg MCHC (31.0-37.0) g/dL RDW Std Deviation (28.0-62.0) fl RDW Coeff of Nancy (11.0-15.0) % Plt Count (150-400) K/uL MPV (7.40-12.00) fL Neut % (Auto) (48.0-80.0) % Lymph % (Auto) (16.0-40.0) % [place] % (Auto) (0.0-15.0) % Eos % (Auto) (0.0-7.0) % Baso % (Auto) (0.0-1.5) % Neut # (Auto) (1.4-5.7) K/uL Lymph # (Auto) (0.6-2.4) K/uL [place] # (Auto) (0.0-0.8) K/uL Eos # (Auto) (0.0-0.7) K/uL Baso # (Auto) (0.0-0.1) K/uL Nucleated RBC % /100WBC Nucleated RBCs # K/uL Sodium (136-145) mmol/L Potassium (3.5-5.1) mmol/L Chloride (98-107) mmol/L Carbon Dioxide (21.0-32.0) mmol/L BUN (7.0-18.0) mg/dL Creatinine (0.6-1.0) mg/dL Est Cr Clr Drug Dosing mL/min Estimated GFR (MDRD) ml/min Glucose (74-106) mg/dL POC Glucose 328 H (60-110) mg/dL Calcium (8.5-10.1) mg/dL Phosphorus (2.6-4.7) mg/dL Magnesium (1.8-2.4) mg/dL Lipase (73-393) U/L Med Orders - Current: Current Medications Acetaminophen (Tylenol) 650 mg PO Q4H PRN PRN Reason: Pain (Mild 1-3)/fever Dextrose/Water (Dextrose 50% In Water) 50 ml IVPUSH Q6H PRN PRN Reason: Hypoglycemia Last Admin: 04/23/20 23:18 Dose: 25 ml Documented by: Diphenhydramine HCl (Benadryl) 50 mg PO TID PRN PRN Reason: Itching Diphenhydramine HCl (Benadryl) 25 mg IVPUSH Q8H PRN PRN Reason: itching/allergies Last Admin: 04/24/20 12:03 Dose: 25 mg Documented by: Enoxaparin Sodium (Lovenox) 40 mg SUBCUT BEDTIME [facility] Last Admin: 04/23/20 20:53 Dose: 40 mg Documented by: Hydromorphone HCl (Dilaudid) 1 mg IVPUSH Q3H PRN PRN Reason: Pain Last Admin: 04/24/20 12:04 Dose: 1 mg Documented by: Pantoprazole Sodium 40 mg/ (Sodium Chloride) 10 mls @ 300 mls/hr IV Q24H [facility] Last Admin: 04/23/20 20:51 Dose: 300 mls/hr Documented by: Dextrose/Lactated Ringer's (Dextrose 5%-Lactated Ringers) 1,000 mls @ 125 mls/hr IV ASDIRECTED [facility] Last Admin: 04/24/20 04:41 Dose: 125 mls/hr Documented by: Magnesium Sulfate 4 gm/ Premix 100 mls @ 33.333 mls/hr IV ONETIME ONE Stop: 04/24/20 13:12 Last Admin: 04/24/20 12:03 Dose: 33.333 mls/hr Documented by: Insulin Aspart (Novolog) 0 unit SUBCUT TIDAC [facility]; Protocol Last Admin: 04/24/20 08:30 Dose: 8 units Documented by: Insulin Detemir (Levemir) 15 unit SUBCUT DAILY [facility] Last Admin: 04/24/20 09:51 Dose: 15 units Documented by: Lorazepam (Ativan) 1 mg IVPUSH Q4H PRN PRN Reason: Anxiety Last Admin: 04/24/20 08:22 Dose: 1 mg Documented by: Ondansetron HCl (Zofran) 4 mg IVPUSH Q4H PRN PRN Reason: Nausea/Vomiting Last Admin: 04/24/20 08:23 Dose: 4 mg Documented by: Petrolatum (Aquaphor With Natural Healing) 0 gm TOP TID PRN PRN Reason: Dryness Sodium Chloride (Saline Flush) 10 ml FLUSH ASDIRECTED PRN PRN Reason: Keep Vein Open Last Admin: 04/22/20 14:51 Dose: 10 ml Documented by: Sodium Chloride (Saline Flush) 2.5 ml FLUSH ASDIRECTED PRN PRN Reason: Keep Vein Open Last Admin: 04/22/20 14:51 Dose: 2.5 ml Documented by: Tizanidine HCl (Zanaflex) 12 mg PO TID NIGEL Last Admin: 04/24/20 06:19 Dose: Not Given Documented by: Discontinued Medications Dextrose/Water (Dextrose 50% In Water) Confirm Administered Dose 50 ml .ROUTE .STK-MED ONE Stop: 04/22/20 21:34 Last Admin: 04/22/20 23:08 Dose: Not Given Documented by: Dextrose/Water (Dextrose 50% In Water) 25 ml IVPUSH ONETIME ONE Stop: 04/22/20 22:20 Last Admin: 04/22/20 22:47 Dose: 25 ml Documented by: Dextrose/Water (Dextrose 50% In Water) 25 ml IVPUSH ONETIME ONE Stop: 04/23/20 00:21 Last Admin: 04/23/20 00:25 Dose: 25 ml Documented by: Diphenhydramine HCl (Benadryl) 50 mg IVPUSH ONETIME ONE Stop: 04/22/20 18:04 Last Admin: 04/22/20 18:27 Dose: 50 mg Documented by: Diphenhydramine HCl (Benadryl) 25 mg IVPUSH ONETIME ONE Stop: 04/22/20 22:22 Last Admin: 04/22/20 22:47 Dose: 25 mg Documented by: Famotidine (Pepcid) 20 mg IVPUSH ONETIME ONE Stop: 04/22/20 14:31 Last Admin: 04/22/20 14:51 Dose: 20 mg Documented by: Hydromorphone HCl (Dilaudid) 0.5 mg IVPUSH Q2H PRN PRN Reason: Pain Last Admin: 04/22/20 21:04 Dose: 0.5 mg Documented by: Hydromorphone HCl (Dilaudid) 1 mg IVPUSH Q3H PRN PRN Reason: Pain Last Admin: 04/24/20 04:39 Dose: 1 mg Documented by: Sodium Chloride (Normal Saline) 1,000 mls @ 999 mls/hr IV .Bolus ONE Stop: 04/22/20 15:30 Last Admin: 04/22/20 14:50 Dose: 999 mls/hr Documented by: Sodium Chloride (Normal Saline) 1,000 mls @ 999 mls/hr IV .Bolus ONE Stop: 04/22/20 15:36 Last Admin: 04/22/20 14:51 Dose: 999 mls/hr Documented by: Lactated Ringer's (Ringers, Lactated) 1,000 mls @ 125 mls/hr IV ASDIRECTED [facility] Last Admin: 04/22/20 21:01 Dose: 125 mls/hr Documented by: Magnesium Sulfate (Magnesium Sulfate In Water Premix) 2 gm in 50 mls @ 25 mls/hr IV NOW ONE Stop: 04/23/20 00:59 Last Admin: 04/22/20 23:18 Dose: 25 mls/hr Documented by: Lactated Ringer's (Ringers, Lactated) 1,000 mls @ 999 mls/hr IV .BOLUS ONE Stop: 04/23/20 11:31 Last Admin: 04/23/20 10:56 Dose: 999 mls/hr Documented by: [facility]) [facility] Protocol Iopamidol (Isovue-370 (76%)) 66 ml IVPUSH ONETIME ONE Stop: 04/22/20 16:40 Last Admin: 04/22/20 16:39 Dose: 66 ml Documented by: Lorazepam (Ativan) 1 mg IVPUSH ONETIME ONE Stop: 04/22/20 15:57 Last Admin: 04/22/20 16:12 Dose: 1 mg Documented by: Lorazepam (Ativan) 0.5 mg IVPUSH Q4H PRN PRN Reason: Anxiety Last Admin: 04/22/20 21:16 Dose: 0.5 mg Documented by: Morphine Sulfate (Morphine) 4 mg IVPUSH ONETIME ONE Stop: 04/22/20 15:04 Last Admin: 04/22/20 15:19 Dose: 4 mg Documented by: Morphine Sulfate (Morphine) 4 mg IVPUSH ONETIME ONE Stop: 04/22/20 17:10 Last Admin: 04/22/20 17:24 Dose: 4 mg Documented by: Ondansetron HCl (Zofran) 4 mg IVPUSH ONETIME ONE Stop: 04/22/20 14:31 Last Admin: 04/22/20 14:51 Dose: 4 mg Documented by: - Exam General: Alert, Oriented Lungs: Clear to Auscultation, Normal Respiratory Effort Cardiovascular: Regular Rate, Regular Rhythm GI/Abdominal Exam: Normal Bowel Sounds, Soft, Guarding, Rigid, Rebound, Tender. No: Distended, Mass, Hepatomegaly Back Exam: Normal Inspection, Full Range of Motion Extremities: Normal Inspection, Normal Range of Motion Sepsis Event Note - Evaluation Sepsis Screening Result: No Definite Risk - Focused Exam Vital Signs: Vital Signs Temp Pulse Resp BP Pulse Ox 04/24/20 12:00 36.9 C 90 16 125/73 96 04/24/20 08:00 36.8 C 84 16 138/79 96 04/24/20 04:26 36.6 C 71 16 124/71 99 - Problem List & Annotations (1) Pancreatitis SNOMED Code(s): 73581279 Code(s): K85.90 - ACUTE PANCREATITIS WITHOUT NECROSIS OR INFECTION, UNSP Status: Acute Current Visit: Yes (2) Abdominal pain SNOMED Code(s): 37170492 Code(s): R10.9 - UNSPECIFIED ABDOMINAL PAIN Status: Acute Current Visit: Yes (3) Port-A-Cath in place SNOMED Code(s): 856048087 Code(s): Z95.828 - PRESENCE OF OTHER VASCULAR IMPLANTS AND GRAFTS Status: Acute Current Visit: Yes - Problem List Review Problem List Initiated/Reviewed/Updated: Yes - My Orders Last 24 Hours: My Active Orders 04/24/20 07:52 HYDROmorphone [Dilaudid] 1 mg IVPUSH Q3H PRN - Plan Plan:: Assessment/Plan: Acute Pancreatitis- Will try clears,advance diet as tolerated, 125ml/hr LR, Will try to wean off Dilaudid and start on oral oxycodone Hyperglycemia- Secondary to DM 1, Insulin sliding scale, IV FLUIDS, continue Levemir, PMH Anxiety, Bipolar- continue Home meds , we'll stop IV Ativan and switch to home dose of Valium
[2020-04-24] MEDS ORDERED: oxyCODONE 5 MG Tab PO PRN (17:32)
[2020-04-24 18:31] LABS: HEMOGLOBIN A1C 9.3 % (4.5-6.2)
[2020-04-24] MEDS: Diazepam 5 MG Tab PO PRN (20:42)
[2020-04-24] MEDS: Pantoprazole 40 MG in Sodium Chloride 0.9% 10 ML IV SCH (20:42)
[2020-04-24] MEDS: Enoxaparin 40 MG/0.4 ML Syringe SUBCUT SCH (20:43)
[2020-04-25] MEDS: HYDROmorphone 1 MG/ML Syringe IVPUSH PRN ×6 (00:01→21:31)
[2020-04-25] MEDS: Ondansetron 4 MG/2 ML SDV IVPUSH PRN ×6 (00:47→21:30)
[2020-04-25] MEDS: Dextrose 5%-Lactated Ringers 1,000 ML IV SCH (04:49)
[2020-04-25] MEDS: diphenhydrAMINE 50 MG/ML SDV IVPUSH PRN ×3 (04:50→21:28)
[2020-04-25] MEDS: tiZANidine 4 MG Tab PO SCH ×3 (05:16→21:19)
[2020-04-25 07:01] LABS: BLOOD UREA NITROGEN,BUN 9 mg/dL (7.0-18.0); CARBON DIOXIDE,CO2 23.7 mmol/L (21.0-32.0); CHLORIDE,CL 98 mmol/L (98-107); GLUCOSE RANDOM 468 mg/dL (74-106); POTASSIUM,K 4.6 mmol/L (3.5-5.1); SODIUM,NA 133 mmol/L (136-145)
[2020-04-25] MEDS: Diazepam 5 MG Tab PO PRN (08:35)
[2020-04-25] MEDS: Insulin Aspart 100 Units/ML 3 ML Pen SUBCUT SCH ×3 (08:35→17:48)
[2020-04-25] MEDS: Insulin Detemir 100 Units/ML 3 ML Pen SUBCUT SCH (09:49)
[2020-04-25] MEDS ORDERED: Insulin Aspart 100 Units/ML 3 ML Pen SUBCUT STA (09:54)
[2020-04-25] MEDS: Lactated Ringers 1,000 ML IV SCH ×2 (10:04→20:34)
[2020-04-25] MEDS ORDERED: Lactated Ringers 1,000 ML IV ONE ×2 (10:59→13:15)
[2020-04-25] MEDS ORDERED: Magnesium Sulfate/Water 4 GM in Premix Bag 1 BAG IV ONE (11:10)
[2020-04-25] MEDS: LORazepam 2 MG/ML SDV IVPUSH PRN ×3 (12:06→20:18)
[2020-04-25] MEDS: Promethazine 25 MG/ML SDV IM PRN ×2 (12:07→18:08)
[2020-04-25 14:20] LABS: BILIRUBIN INDIRECT 0.3
[2020-04-25] MEDS: Pantoprazole 40 MG in Sodium Chloride 0.9% 10 ML IV SCH (20:22)
[2020-04-25] MEDS: Enoxaparin 40 MG/0.4 ML Syringe SUBCUT SCH (20:22)
[2020-04-26] MEDS ORDERED: Insulin Aspart 100 Units/ML 3 ML Pen SUBCUT ONE ×2 (00:01→01:41)
[2020-04-26] MEDS: LORazepam 2 MG/ML SDV IVPUSH PRN ×3 (00:56→11:52)
[2020-04-26] MEDS: Promethazine 25 MG/ML SDV IM PRN ×3 (00:57→16:20)
[2020-04-26] MEDS: HYDROmorphone 1 MG/ML Syringe IVPUSH PRN ×2 (01:37→05:46)
[2020-04-26] MEDS: Ondansetron 4 MG/2 ML SDV IVPUSH PRN ×4 (01:40→21:15)
[2020-04-26] MEDS: Insulin Aspart 100 Units/ML 3 ML Pen SUBCUT SCH ×6 (03:18→23:15)
[2020-04-26] MEDS: Lactated Ringers 1,000 ML IV SCH ×2 (05:43→14:05)
[2020-04-26] MEDS: 50% Dextrose in Water 50 ML Syringe IVPUSH PRN (05:52)
[2020-04-26] MEDS: diphenhydrAMINE 50 MG/ML SDV IVPUSH PRN (05:58)
[2020-04-26] MEDS: tiZANidine 4 MG Tab PO SCH ×3 (06:50→23:07)
[2020-04-26] MEDS: Insulin Detemir 100 Units/ML 3 ML Pen SUBCUT SCH (09:29)
--- NOTE | 2020-04-26 09:52 | PCM.PN ---
- General Info Date of Service: 04/26/20 Admission Dx/Problem (Free Text): Admission Diagnosis/Problem Admission Diagnosis/Problem Pancreatitis Subjective Update: patient states that she still feels nauseous, has been asking for pain meds dot on time, current still is in abdominal pain. Patient seems to have very exaggerated response upon very mild palpation of the abdomen, tolerating some clears, unwitnessed vomiting episodes reported - Review of Systems General: Reports: Weakness, Fatigue Pulmonary: Denies: Shortness of Breath, Pleuritic Chest Pain Gastrointestinal: Reports: Abdominal Pain, Decreased Appetite, Nausea. Denies: Constipation, Diarrhea, Difficulty Swallowing, Vomiting Musculoskeletal: Denies: Neck Pain, Shoulder Pain, Arm Pain Skin: Denies: Cyanosis, Jaundice, Mottled - Patient Data Vitals - Most Recent: Last Vital Signs Temp 36.7 C 04/26/20 08:06 Pulse 88 04/26/20 08:06 Resp 14 04/26/20 08:06 BP 95/60 04/26/20 08:06 Pulse Ox 98 04/26/20 08:06 Weight - Most Recent: 58.468 kg I&O - Last 24 Hours: Intake & Output 04/25/20 04/26/20 04/26/20 22:59 06:59 14:59 Intake Total 2810 2710 Output Total 1900 2600 Balance 910 110 Lab Results Last 24 Hours: Laboratory Results - last 24 hr 04/25/20 04/25/20 04/25/20 Range/Units 06:25 09:46 10:09 Glucose 563 H* (74-106) mg/dL POC Glucose > 500 H (60-110) mg/dL Total Bilirubin 0.4 (0.2-1.0) mg/dL Direct Bilirubin 0.10 (0.0-0.5) mg/dL Indirect Bilirubin 0.30 AST 20 (15-37) IU/L ALT 28 (14-63) IU/L Alkaline Phosphatase 85 (46-116) U/L Troponin I (0.000-0.056) ng/mL Total Protein 5.9 L (6.4-8.2) g/dL Albumin 3.1 L (3.4-5.0) g/dL Globulin 2.8 (2.6-4.0) g/dL Albumin/Globulin Ratio 1.1 (0.9-1.6) Lipase (73-393) U/L 04/25/20 04/25/20 04/25/20 Range/Units 10:09 10:09 10:56 Glucose (74-106) mg/dL POC Glucose 376 H (60-110) mg/dL Total Bilirubin (0.2-1.0) mg/dL Direct Bilirubin (0.0-0.5) mg/dL Indirect Bilirubin AST (15-37) IU/L ALT (14-63) IU/L Alkaline Phosphatase (46-116) U/L Troponin I < 0.050 (0.000-0.056) ng/mL Total Protein (6.4-8.2) g/dL Albumin (3.4-5.0) g/dL Globulin (2.6-4.0) g/dL Albumin/Globulin Ratio (0.9-1.6) Lipase 64 L (73-393) U/L 04/25/20 04/25/20 04/25/20 Range/Units 12:15 13:28 16:41 Glucose (74-106) mg/dL POC Glucose 221 H 148 H 137 H (60-110) mg/dL Total Bilirubin (0.2-1.0) mg/dL Direct Bilirubin (0.0-0.5) mg/dL Indirect Bilirubin AST (15-37) IU/L ALT (14-63) IU/L Alkaline Phosphatase (46-116) U/L Troponin I (0.000-0.056) ng/mL Total Protein (6.4-8.2) g/dL Albumin (3.4-5.0) g/dL Globulin (2.6-4.0) g/dL Albumin/Globulin Ratio (0.9-1.6) Lipase (73-393) U/L 04/25/20 04/26/20 04/26/20 Range/Units 23:54 01:28 02:56 Glucose (74-106) mg/dL POC Glucose 475 H 319 H 200 H (60-110) mg/dL Total Bilirubin (0.2-1.0) mg/dL Direct Bilirubin (0.0-0.5) mg/dL Indirect Bilirubin AST (15-37) IU/L ALT (14-63) IU/L Alkaline Phosphatase (46-116) U/L Troponin I (0.000-0.056) ng/mL Total Protein (6.4-8.2) g/dL Albumin (3.4-5.0) g/dL Globulin (2.6-4.0) g/dL Albumin/Globulin Ratio (0.9-1.6) Lipase (73-393) U/L 04/26/20 04/26/20 Range/Units 05:47 07:01 Glucose (74-106) mg/dL POC Glucose 51 L 218 H (60-110) mg/dL Total Bilirubin (0.2-1.0) mg/dL Direct Bilirubin (0.0-0.5) mg/dL Indirect Bilirubin AST (15-37) IU/L ALT (14-63) IU/L Alkaline Phosphatase (46-116) U/L Troponin I (0.000-0.056) ng/mL Total Protein (6.4-8.2) g/dL Albumin (3.4-5.0) g/dL Globulin (2.6-4.0) g/dL Albumin/Globulin Ratio (0.9-1.6) Lipase (73-393) U/L Med Orders - Current: Current Medications Acetaminophen (Tylenol) 650 mg PO Q4H PRN PRN Reason: Pain (Mild 1-3)/fever Dextrose/Water (Dextrose 50% In Water) 50 ml IVPUSH Q6H PRN PRN Reason: Hypoglycemia Last Admin: 04/26/20 05:52 Dose: 25 ml Documented by: Diphenhydramine HCl (Benadryl) 50 mg PO TID PRN PRN Reason: Itching Enoxaparin Sodium (Lovenox) 40 mg SUBCUT BEDTIME [facility] Last Admin: 04/25/20 20:22 Dose: 40 mg Documented by: Pantoprazole Sodium 40 mg/ (Sodium Chloride) 10 mls @ 300 mls/hr IV Q24H NIGEL Last Admin: 04/25/20 20:22 Dose: 300 mls/hr Documented by: Lactated Ringer's (Ringers, Lactated) 1,000 mls @ 125 mls/hr IV ASDIRECTED [facility] Last Admin: 04/26/20 05:43 Dose: 125 mls/hr Documented by: Insulin Aspart (Novolog) 0 unit SUBCUT TIDAC [facility]; Protocol Last Admin: 04/26/20 03:18 Dose: 4 units Documented by: Insulin Detemir (Levemir) 15 unit SUBCUT DAILY [facility] Last Admin: 04/26/20 09:29 Dose: 15 units Documented by: Lorazepam (Ativan) 1 mg IVPUSH Q4H PRN PRN Reason: Anxiety Last Admin: 04/26/20 07:39 Dose: 1 mg Documented by: Ondansetron HCl (Zofran) 4 mg IVPUSH Q4H PRN PRN Reason: Nausea/Vomiting Last Admin: 04/26/20 05:44 Dose: 4 mg Documented by: Oxycodone HCl (Oxycodone) 5 mg PO Q6H [facility] Petrolatum (Aquaphor With Natural Healing) 0 gm TOP TID PRN PRN Reason: Dryness Last Admin: 04/24/20 23:59 Dose: 1 applic Documented by: Promethazine HCl (Phenergan) 12.5 mg IM Q6H PRN PRN Reason: Nausea Last Admin: 04/26/20 08:31 Dose: 12.5 mg Documented by: Sodium Chloride (Saline Flush) 10 ml FLUSH ASDIRECTED PRN PRN Reason: Keep Vein Open Last Admin: 04/22/20 14:51 Dose: 10 ml Documented by: Sodium Chloride (Saline Flush) 2.5 ml FLUSH ASDIRECTED PRN PRN Reason: Keep Vein Open Last Admin: 04/22/20 14:51 Dose: 2.5 ml Documented by: Tizanidine HCl (Zanaflex) 12 mg PO TID [facility] Last Admin: 04/26/20 06:50 Dose: Not Given Documented by: Discontinued Medications Dextrose/Water (Dextrose 50% In Water) Confirm Administered Dose 50 ml .ROUTE .STK-MED ONE Stop: 04/22/20 21:34 Last Admin: 04/22/20 23:08 Dose: Not Given Documented by: Dextrose/Water (Dextrose 50% In Water) 25 ml IVPUSH ONETIME ONE Stop: 04/22/20 22:20 Last Admin: 04/22/20 22:47 Dose: 25 ml Documented by: Dextrose/Water (Dextrose 50% In Water) 25 ml IVPUSH ONETIME ONE Stop: 04/23/20 00:21 Last Admin: 04/23/20 00:25 Dose: 25 ml Documented by: Diazepam (Valium.) 5 mg PO TID PRN PRN Reason: muscle spasms Last Admin: 04/25/20 08:35 Dose: 5 mg Documented by: Diphenhydramine HCl (Benadryl) 50 mg IVPUSH ONETIME ONE Stop: 04/22/20 18:04 Last Admin: 04/22/20 18:27 Dose: 50 mg Documented by: Diphenhydramine HCl (Benadryl) 25 mg IVPUSH ONETIME ONE Stop: 04/22/20 22:22 Last Admin: 04/22/20 22:47 Dose: 25 mg Documented by: Diphenhydramine HCl (Benadryl) 25 mg IVPUSH Q8H PRN PRN Reason: itching/allergies Last Admin: 04/26/20 05:58 Dose: 25 mg Documented by: Famotidine (Pepcid) 20 mg IVPUSH ONETIME ONE Stop: 04/22/20 14:31 Last Admin: 04/22/20 14:51 Dose: 20 mg Documented by: Hydromorphone HCl (Dilaudid) 0.5 mg IVPUSH Q2H PRN PRN Reason: Pain Last Admin: 04/22/20 21:04 Dose: 0.5 mg Documented by: Hydromorphone HCl (Dilaudid) 1 mg IVPUSH Q3H PRN PRN Reason: Pain Last Admin: 04/24/20 04:39 Dose: 1 mg Documented by: Hydromorphone HCl (Dilaudid) 1 mg IVPUSH Q3H PRN PRN Reason: Pain Last Admin: 04/24/20 15:03 Dose: 1 mg Documented by: Hydromorphone HCl (Dilaudid) 1 mg IVPUSH Q4H PRN PRN Reason: Pain Last Admin: 04/26/20 05:46 Dose: 1 mg Documented by: Sodium Chloride (Normal Saline) 1,000 mls @ 999 mls/hr IV .Bolus ONE Stop: 04/22/20 15:30 Last Admin: 04/22/20 14:50 Dose: 999 mls/hr Documented by: Sodium Chloride (Normal Saline) 1,000 mls @ 999 mls/hr IV .Bolus ONE Stop: 04/22/20 15:36 Last Admin: 04/22/20 14:51 Dose: 999 mls/hr Documented by: Lactated Ringer's (Ringers, Lactated) 1,000 mls @ 125 mls/hr IV ASDIRECTED [facility] Last Admin: 04/22/20 21:01 Dose: 125 mls/hr Documented by: Dextrose/Lactated Ringer's (Dextrose 5%-Lactated Ringers) 1,000 mls @ 125 [facility]ls[facility] Last Admin: 04/25/20 04:49 Dose: 125 mls/hr Documented by: Magnesium Sulfate (Magnesium Sulfate In Water Premix) 2 gm in 50 mls @ 25 mls/hr IV NOW ONE Stop: 04/23/20 00:59 Last Admin: 04/22/20 23:18 Dose: 25 mls/hr Documented by: Lactated Ringer's (Ringers, Lactated) 1,000 mls @ 999 mls/hr IV .BOLUS ONE Stop: 04/23/20 11:31 Last Admin: 04/23/20 10:56 Dose: 999 mls/hr Documented by: Magnesium Sulfate 4 gm/ Premix 100 mls @ 33.333 mls/hr IV ONETIME ONE Stop: 04/24/20 13:12 Last Admin: 04/24/20 12:03 Dose: 33.333 mls/hr Documented by: Lactated Ringer's (Ringers, Lactated) 1,000 mls @ 999 mls/hr IV .BOLUS ONE Stop: 04/25/20 11:59 Last Admin: 04/25/20 13:27 Dose: Not Given Documented by: Magnesium Sulfate 4 gm/ Premix 100 mls @ 50 mls/hr IV ONETIME ONE Stop: 04/25/20 13:09 Last Admin: 04/25/20 12:12 Dose: 50 mls/hr Documented by: Lactated Ringer's (Ringers, Lactated) 1,000 mls @ 999 mls/hr IV .BOLUS ONE Stop: 04/25/20 14:15 Last Admin: 04/25/20 13:26 Dose: 999 mls/hr Documented by: [facility]) [facility] Protocol Insulin Aspart (Novolog) 15 unit SUBCUT NOW STA Stop: 04/25/20 09:55 Last Admin: 04/25/20 10:03 Dose: 15 units Documented by: Insulin Aspart (Novolog) 15 unit SUBCUT NOW ONE Stop: 04/26/20 00:02 Last Admin: 04/26/20 00:05 Dose: 15 unit Documented by: Insulin Aspart (Novolog) 10 unit SUBCUT ONETIME ONE Stop: 04/26/20 01:42 Last Admin: 04/26/20 01:46 Dose: 10 unit Documented by: Iopamidol (Isovue-370 (76%)) 66 ml IVPUSH ONETIME ONE Stop: 04/22/20 16:40 Last Admin: 04/22/20 16:39 Dose: 66 ml Documented by: Lorazepam (Ativan) 1 mg IVPUSH ONETIME ONE Stop: 04/22/20 15:57 Last Admin: 04/22/20 16:12 Dose: 1 mg Documented by: Lorazepam (Ativan) 0.5 mg IVPUSH Q4H PRN PRN Reason: Anxiety Last Admin: 04/22/20 21:16 Dose: 0.5 mg Documented by: Lorazepam (Ativan) 1 mg IVPUSH Q4H PRN PRN Reason: Anxiety Last Admin: 04/24/20 16:22 Dose: 1 mg Documented by: Morphine Sulfate (Morphine) 4 mg IVPUSH ONETIME ONE Stop: 04/22/20 15:04 Last Admin: 04/22/20 15:19 Dose: 4 mg Documented by: Morphine Sulfate (Morphine) 4 mg IVPUSH ONETIME ONE Stop: 04/22/20 17:10 Last Admin: 04/22/20 17:24 Dose: 4 mg Documented by: Ondansetron HCl (Zofran) 4 mg IVPUSH ONETIME ONE Stop: 04/22/20 14:31 Last Admin: 04/22/20 14:51 Dose: 4 mg Documented by: Oxycodone HCl (Oxycodone) 5 mg PO Q4H PRN PRN Reason: Abdominal Pain - Exam General: Alert, Oriented, Mild Distress Lungs: Clear to Auscultation, Normal Respiratory Effort Cardiovascular: Regular Rate, Regular Rhythm GI/Abdominal Exam: Normal Bowel Sounds, Soft, Guarding, Tender. No: Distended, Abnormal Bowel Sounds Extremities: Normal Inspection, Normal Range of Motion Sepsis Event Note - Evaluation Sepsis Screening Result: No Definite Risk - Focused Exam Vital Signs: Vital Signs Temp Pulse Resp BP Pulse Ox 04/26/20 08:06 36.7 C 88 14 95/60 98 04/26/20 04:26 36.8 C 100 17 102/70 97 04/26/20 00:00 36.8 C 95 17 120/56 L 98 - Problem List & Annotations (1) Pancreatitis SNOMED Code(s): 57410616 Code(s): K85.90 - ACUTE PANCREATITIS WITHOUT NECROSIS OR INFECTION, UNSP Status: Acute Current Visit: Yes (2) Abdominal pain SNOMED Code(s): 46654037 Code(s): R10.9 - UNSPECIFIED ABDOMINAL PAIN Status: Acute Current Visit: Yes (3) Port-A-Cath in place SNOMED Code(s): 389423129 Code(s): Z95.828 - PRESENCE OF OTHER VASCULAR IMPLANTS AND GRAFTS Status: Acute Current Visit: Yes - Problem List Review Problem List Initiated/Reviewed/Updated: Yes - My Orders Last 24 Hours: My Active Orders 04/25/20 Dinner Clear Liquid Diet [DIET] 04/26/20 10:00 oxyCODONE 5 mg PO Q6H 04/26/20 Lunch Soft Diet [DIET] 04/27/20 05:11 BMP [BASIC METABOLIC PANEL,BMP] [CHEM] AM CBC WITH AUTO DIFF [HEME] AM MAGNESIUM [CHEM] AM PHOSPHORUS [CHEM] AM - Plan Plan:: Assessment/Plan: Acute Pancreatitis- start soft diet, advance diet as tolerated, 125ml/hr LR, stop Dilaudid and start on oral oxycodone Hyperglycemia- Secondary to DM 1, Insulin sliding scale, IV FLUIDS, continue Levemir, PMH Anxiety, Bipolar- continue Home meds , we'll stop IV Ativan and switch to home dose of Valium
[2020-04-26] MEDS ORDERED: HYDROmorphone 1 MG/ML Syringe IVPUSH ONE (12:34)
[2020-04-26 13:21] LABS: BLOOD UREA NITROGEN,BUN 9 mg/dL (7.0-18.0); CARBON DIOXIDE,CO2 20.2 mmol/L (21.0-32.0); CHLORIDE,CL 100 mmol/L (98-107); GLUCOSE RANDOM 235 mg/dL (74-106); POTASSIUM,K 4.4 mmol/L (3.5-5.1); SODIUM,NA 135 mmol/L (136-145)
[2020-04-26] MEDS ORDERED: Magnesium Sulfate/Water 4 GM in Premix Bag 1 BAG IV ONE (13:37)
[2020-04-26] MEDS: oxyCODONE 5 MG Tab PO SCH ×3 (13:54→18:57)
[2020-04-26] MEDS: diphenhydrAMINE 50 MG Cap PO PRN ×2 (13:59→23:08)
[2020-04-26] MEDS: Diazepam 5 MG Tab PO PRN (17:03)
[2020-04-26] MEDS: Pantoprazole 40 MG in Sodium Chloride 0.9% 10 ML IV SCH (21:08)
[2020-04-26] MEDS: Enoxaparin 40 MG/0.4 ML Syringe SUBCUT SCH (21:08)
[2020-04-27] MEDS: oxyCODONE 5 MG Tab PO SCH ×3 (00:56→11:28)
[2020-04-27] MEDS: Lactated Ringers 1,000 ML IV SCH ×3 (01:47→17:39)
[2020-04-27] MEDS: tiZANidine 4 MG Tab PO SCH ×3 (05:56→22:47)
[2020-04-27] MEDS: Diazepam 5 MG Tab PO PRN ×2 (06:06→22:47)
[2020-04-27] MEDS: Insulin Aspart 100 Units/ML 3 ML Pen SUBCUT SCH ×6 (06:08→17:50)
[2020-04-27 06:15] LABS: BLOOD UREA NITROGEN,BUN 11 mg/dL (7.0-18.0); CARBON DIOXIDE,CO2 26.4 mmol/L (21.0-32.0); CHLORIDE,CL 103 mmol/L (98-107); GLUCOSE RANDOM 249 mg/dL (74-106); POTASSIUM,K 3.9 mmol/L (3.5-5.1); SODIUM,NA 137 mmol/L (136-145)
[2020-04-27] MEDS: Insulin Detemir 100 Units/ML 3 ML Pen SUBCUT SCH (08:43)
--- NOTE | 2020-04-27 10:27 | PCM.PN ---
- General Info Date of Service: 04/27/20 - Review of Systems Systems Review Comment:: reports nausea and upset stomach today - Patient Data Vitals - Most Recent: Last Vital Signs Temp 36.2 C 04/27/20 07:53 Pulse 57 L 04/27/20 07:53 Resp 16 04/27/20 07:53 BP 100/60 04/27/20 07:53 Pulse Ox 99 04/27/20 07:53 Weight - Most Recent: 58.468 kg I&O - Last 24 Hours: Intake & Output 04/26/20 04/27/20 04/27/20 22:59 06:59 14:59 Intake Total 420 2962 Output Total 0 Balance 420 2962 Lab Results Last 24 Hours: Laboratory Results - last 24 hr 04/26/20 04/26/20 04/26/20 Range/Units 09:15 12:37 12:55 WBC 5.52 (4.0-11.0) K/uL RBC 4.44 (4.30-5.90) M/uL Hgb 11.5 L (12.0-16.0) g/dL Hct 36.2 (36.0-46.0) % MCV 81.5 (80.0-98.0) fL MCH 25.9 L (27.0-32.0) pg MCHC 31.8 (31.0-37.0) g/dL RDW Std Deviation 37.3 (28.0-62.0) fl RDW Coeff of Nancy 12 (11.0-15.0) % Plt Count 250 (150-400) K/uL MPV 9.90 (7.40-12.00) fL Neut % (Auto) 69.2 (48.0-80.0) % Lymph % (Auto) 23.4 (16.0-40.0) % [place] % (Auto) 5.4 (0.0-15.0) % Eos % (Auto) 1.8 (0.0-7.0) % Baso % (Auto) 0.2 (0.0-1.5) % Neut # (Auto) 3.8 (1.4-5.7) K/uL Lymph # (Auto) 1.3 (0.6-2.4) K/uL [place] # (Auto) 0.3 (0.0-0.8) K/uL Eos # (Auto) 0.1 (0.0-0.7) K/uL Baso # (Auto) 0.0 (0.0-0.1) K/uL Nucleated RBC % 0.0 /100WBC Nucleated RBCs # 0 K/uL Sodium (136-145) mmol/L Potassium (3.5-5.1) mmol/L Chloride (98-107) mmol/L Carbon Dioxide (21.0-32.0) mmol/L BUN (7.0-18.0) mg/dL Creatinine (0.6-1.0) mg/dL Est Cr Clr Drug Dosing mL/min Estimated GFR (MDRD) ml/min Glucose (74-106) mg/dL POC Glucose 229 H 232 H (60-110) mg/dL Calcium (8.5-10.1) mg/dL Phosphorus (2.6-4.7) mg/dL Magnesium (1.8-2.4) mg/dL 04/26/20 04/26/20 04/26/20 Range/Units 12:55 17:52 23:11 WBC (4.0-11.0) K/uL RBC (4.30-5.90) M/uL Hgb (12.0-16.0) g/dL Hct (36.0-46.0) % MCV (80.0-98.0) fL MCH (27.0-32.0) pg MCHC (31.0-37.0) g/dL RDW Std Deviation (28.0-62.0) fl RDW Coeff of Nancy (11.0-15.0) % Plt Count (150-400) K/uL MPV (7.40-12.00) fL Neut % (Auto) (48.0-80.0) % Lymph % (Auto) (16.0-40.0) % [place] % (Auto) (0.0-15.0) % Eos % (Auto) (0.0-7.0) % Baso % (Auto) (0.0-1.5) % Neut # (Auto) (1.4-5.7) K/uL Lymph # (Auto) (0.6-2.4) K/uL [place] # (Auto) (0.0-0.8) K/uL Eos # (Auto) (0.0-0.7) K/uL Baso # (Auto) (0.0-0.1) K/uL Nucleated RBC % /100WBC Nucleated RBCs # K/uL Sodium 135 L (136-145) mmol/L Potassium 4.4 (3.5-5.1) mmol/L Chloride 100 (98-107) mmol/L Carbon Dioxide 20.2 L (21.0-32.0) mmol/L BUN 9 (7.0-18.0) mg/dL Creatinine 0.7 (0.6-1.0) mg/dL Est Cr Clr Drug Dosing 89.48 mL/min Estimated GFR (MDRD) > 60.0 ml/min Glucose 235 H (74-106) mg/dL POC Glucose 229 H 257 H (60-110) mg/dL Calcium 8.2 L (8.5-10.1) mg/dL Phosphorus 3.8 (2.6-4.7) mg/dL Magnesium 1.3 L (1.8-2.4) mg/dL 04/27/20 04/27/20 04/27/20 Range/Units 04:53 04:53 05:58 WBC 5.32 (4.0-11.0) K/uL RBC 4.36 (4.30-5.90) M/uL Hgb 11.1 L (12.0-16.0) g/dL Hct 35.2 L (36.0-46.0) % MCV 80.7 (80.0-98.0) fL MCH 25.5 L (27.0-32.0) pg MCHC 31.5 (31.0-37.0) g/dL RDW Std Deviation 36.6 (28.0-62.0) fl RDW Coeff of Nancy 12 (11.0-15.0) % Plt Count 279 (150-400) K/uL MPV 9.80 (7.40-12.00) fL Neut % (Auto) 54.1 (48.0-80.0) % Lymph % (Auto) 34.6 (16.0-40.0) % [place] % (Auto) 7.9 (0.0-15.0) % Eos % (Auto) 3.2 (0.0-7.0) % Baso % (Auto) 0.2 (0.0-1.5) % Neut # (Auto) 2.9 (1.4-5.7) K/uL Lymph # (Auto) 1.8 (0.6-2.4) K/uL [place] # (Auto) 0.4 (0.0-0.8) K/uL Eos # (Auto) 0.2 (0.0-0.7) K/uL Baso # (Auto) 0.0 (0.0-0.1) K/uL Nucleated RBC % 0.0 /100WBC Nucleated RBCs # 0 K/uL Sodium 137 (136-145) mmol/L Potassium 3.9 (3.5-5.1) mmol/L Chloride 103 (98-107) mmol/L Carbon Dioxide 26.4 (21.0-32.0) mmol/L BUN 11 (7.0-18.0) mg/dL Creatinine 0.6 (0.6-1.0) mg/dL Est Cr Clr Drug Dosing 104.40 mL/min Estimated GFR (MDRD) > 60.0 ml/min Glucose 249 H (74-106) mg/dL POC Glucose 273 H (60-110) mg/dL Calcium 8.0 L (8.5-10.1) mg/dL Phosphorus 4.1 (2.6-4.7) mg/dL Magnesium 1.5 L (1.8-2.4) mg/dL 04/27/20 Range/Units 08:21 WBC (4.0-11.0) K/uL RBC (4.30-5.90) M/uL Hgb (12.0-16.0) g/dL Hct (36.0-46.0) % MCV (80.0-98.0) fL MCH (27.0-32.0) pg MCHC (31.0-37.0) g/dL RDW Std Deviation (28.0-62.0) fl RDW Coeff of Nancy (11.0-15.0) % Plt Count (150-400) K/uL MPV (7.40-12.00) fL Neut % (Auto) (48.0-80.0) % Lymph % (Auto) (16.0-40.0) % [place] % (Auto) (0.0-15.0) % Eos % (Auto) (0.0-7.0) % Baso % (Auto) (0.0-1.5) % Neut # (Auto) (1.4-5.7) K/uL Lymph # (Auto) (0.6-2.4) K/uL [place] # (Auto) (0.0-0.8) K/uL Eos # (Auto) (0.0-0.7) K/uL Baso # (Auto) (0.0-0.1) K/uL Nucleated RBC % /100WBC Nucleated RBCs # K/uL Sodium (136-145) mmol/L Potassium (3.5-5.1) mmol/L Chloride (98-107) mmol/L Carbon Dioxide (21.0-32.0) mmol/L BUN (7.0-18.0) mg/dL Creatinine (0.6-1.0) mg/dL Est Cr Clr Drug Dosing mL/min Estimated GFR (MDRD) ml/min Glucose (74-106) mg/dL POC Glucose 175 H (60-110) mg/dL Calcium (8.5-10.1) mg/dL Phosphorus (2.6-4.7) mg/dL Magnesium (1.8-2.4) mg/dL Med Orders - Current: Current Medications Acetaminophen (Tylenol) 650 mg PO Q4H PRN PRN Reason: Pain (Mild 1-3)/fever Dextrose/Water (Dextrose 50% In Water) 50 ml IVPUSH Q6H PRN PRN Reason: Hypoglycemia Last Admin: 04/26/20 05:52 Dose: 25 ml Documented by: Diazepam (Valium.) 5 mg PO TID PRN PRN Reason: Anxiety Last Admin: 04/27/20 06:06 Dose: 5 mg Documented by: Diphenhydramine HCl (Benadryl) 50 mg PO TID PRN PRN Reason: Itching Last Admin: 04/26/20 23:08 Dose: 50 mg Documented by: Enoxaparin Sodium (Lovenox) 40 mg SUBCUT BEDTIME NIGEL Last Admin: 04/26/20 21:08 Dose: 40 mg Documented by: Pantoprazole Sodium 40 mg/ (Sodium Chloride) 10 mls @ 300 mls/hr IV Q24H [facility] Last Admin: 04/26/20 21:08 Dose: 300 mls/hr Documented by: Lactated Ringer's (Ringers, Lactated) 1,000 mls @ 125 mls/hr IV ASDIRECTED [facility] Last Admin: 04/27/20 09:59 Dose: 125 mls/hr Documented by: Insulin Aspart (Novolog) 0 unit SUBCUT TIDAC [facility]; Protocol Last Admin: 04/27/20 08:20 Dose: 2 units Documented by: Insulin Aspart (Novolog) 5 unit SUBCUT TID [facility] Last Admin: 04/27/20 06:08 Dose: 5 units Documented by: Insulin Detemir (Levemir) 20 unit SUBCUT DAILY [facility] Last Admin: 04/27/20 08:43 Dose: 20 units Documented by: Lorazepam (Ativan) 0.5 mg IVPUSH Q8H PRN PRN Reason: Anxiety Ondansetron HCl (Zofran) 4 mg IVPUSH Q4H PRN PRN Reason: Nausea/Vomiting Last Admin: 04/26/20 21:15 Dose: 4 mg Documented by: Oxycodone HCl (Oxycodone) 5 mg PO Q6H [facility] Last Admin: 04/27/20 05:55 Dose: 5 mg Documented by: Petrolatum (Aquaphor With Natural Healing) 0 gm TOP TID PRN PRN Reason: Dryness Last Admin: 04/24/20 23:59 Dose: 1 applic Documented by: Promethazine HCl (Phenergan) 12.5 mg IM Q6H PRN PRN Reason: Nausea Last Admin: 04/26/20 16:20 Dose: 12.5 mg Documented by: Sodium Chloride (Saline Flush) 10 ml FLUSH ASDIRECTED PRN PRN Reason: Keep Vein Open Last Admin: 04/22/20 14:51 Dose: 10 ml Documented by: Sodium Chloride (Saline Flush) 2.5 ml FLUSH ASDIRECTED PRN PRN Reason: Keep Vein Open Last Admin: 04/22/20 14:51 Dose: 2.5 ml Documented by: Tizanidine HCl (Zanaflex) 12 mg PO TID [facility] Last Admin: 04/27/20 05:56 Dose: 12 mg Documented by: Discontinued Medications Dextrose/Water (Dextrose 50% In Water) Confirm Administered Dose 50 ml .ROUTE .STK-MED ONE Stop: 04/22/20 21:34 Last Admin: 04/22/20 23:08 Dose: Not Given Documented by: Dextrose/Water (Dextrose 50% In Water) 25 ml IVPUSH ONETIME ONE Stop: 04/22/20 22:20 Last Admin: 04/22/20 22:47 Dose: 25 ml Documented by: Dextrose/Water (Dextrose 50% In Water) 25 ml IVPUSH ONETIME ONE Stop: 04/23/20 00:21 Last Admin: 04/23/20 00:25 Dose: 25 ml Documented by: Diazepam (Valium.) 5 mg PO TID PRN PRN Reason: muscle spasms Last Admin: 04/25/20 08:35 Dose: 5 mg Documented by: Diphenhydramine HCl (Benadryl) 50 mg IVPUSH ONETIME ONE Stop: 04/22/20 18:04 Last Admin: 04/22/20 18:27 Dose: 50 mg Documented by: Diphenhydramine HCl (Benadryl) 25 mg IVPUSH ONETIME ONE Stop: 04/22/20 22:22 Last Admin: 04/22/20 22:47 Dose: 25 mg Documented by: Diphenhydramine HCl (Benadryl) 25 mg IVPUSH Q8H PRN PRN Reason: itching/allergies Last Admin: 04/26/20 05:58 Dose: 25 mg Documented by: Famotidine (Pepcid) 20 mg IVPUSH ONETIME ONE Stop: 04/22/20 14:31 Last Admin: 04/22/20 14:51 Dose: 20 mg Documented by: Hydromorphone HCl (Dilaudid) 0.5 mg IVPUSH Q2H PRN PRN Reason: Pain Last Admin: 04/22/20 21:04 Dose: 0.5 mg Documented by: Hydromorphone HCl (Dilaudid) 1 mg IVPUSH Q3H PRN PRN Reason: Pain Last Admin: 04/24/20 04:39 Dose: 1 mg Documented by: Hydromorphone HCl (Dilaudid) 1 mg IVPUSH Q3H PRN PRN Reason: Pain Last Admin: 04/24/20 15:03 Dose: 1 mg Documented by: Hydromorphone HCl (Dilaudid) 1 mg IVPUSH Q4H PRN PRN Reason: Pain Last Admin: 04/26/20 05:46 Dose: 1 mg Documented by: Hydromorphone HCl (Dilaudid) 1 mg IVPUSH ONETIME ONE Stop: 04/26/20 12:35 Last Admin: 04/26/20 13:39 Dose: 1 mg Documented by: Sodium Chloride (Normal Saline) 1,000 mls @ 999 mls/hr IV .Bolus ONE Stop: 04/22/20 15:30 Last Admin: 04/22/20 14:50 Dose: 999 mls/hr Documented by: Sodium Chloride (Normal Saline) 1,000 mls @ 999 mls/hr IV .Bolus ONE Stop: 04/22/20 15:36 Last Admin: 04/22/20 14:51 Dose: 999 mls/hr Documented by: Lactated Ringer's (Ringers, Lactated) 1,000 mls @ 125 mls/hr IV ASDIRECTED [facility] Last Admin: 04/22/20 21:01 Dose: 125 mls/hr Documented by: Dextrose/Lactated Ringer's (Dextrose 5%-Lactated Ringers) 1,000 mls @ [facility] Last Admin: 04/25/20 04:49 Dose: 125 mls/hr Documented by: Magnesium Sulfate (Magnesium Sulfate In Water Premix) 2 gm in 50 mls @ 25 mls/hr IV NOW ONE Stop: 04/23/20 00:59 Last Admin: 04/22/20 23:18 Dose: 25 mls/hr Documented by: Lactated Ringer's (Ringers, Lactated) 1,000 mls @ 999 mls/hr IV .BOLUS ONE Stop: 04/23/20 11:31 Last Admin: 04/23/20 10:56 Dose: 999 mls/hr Documented by: Magnesium Sulfate 4 gm/ Premix 100 mls @ 33.333 mls/hr IV ONETIME ONE Stop: 04/24/20 13:12 Last Admin: 04/24/20 12:03 Dose: 33.333 mls/hr Documented by: Lactated Ringer's (Ringers, Lactated) 1,000 mls @ 999 mls/hr IV .BOLUS ONE Stop: 04/25/20 11:59 Last Admin: 04/25/20 13:27 Dose: Not Given Documented by: Magnesium Sulfate 4 gm/ Premix 100 mls @ 50 mls/hr IV ONETIME ONE Stop: 04/25/20 13:09 Last Admin: 04/25/20 12:12 Dose: 50 mls/hr Documented by: Lactated Ringer's (Ringers, Lactated) 1,000 mls @ 999 mls/hr IV .BOLUS ONE Stop: 04/25/20 14:15 Last Admin: 04/25/20 13:26 Dose: 999 mls/hr Documented by: Magnesium Sulfate 4 gm/ Premix 100 mls @ 33.333 mls/hr IV ONETIME ONE Stop: 04/26/20 16:36 Last Admin: 04/26/20 14:07 Dose: 33.333 mls/hr Documented by: Insulin Aspart (Novolog) 0 unit SUBCUT TIDAC [facility]; Protocol Insulin Aspart (Novolog) 15 unit SUBCUT NOW STA Stop: 04/25/20 09:55 Last Admin: 04/25/20 10:03 Dose: 15 units Documented by: Insulin Aspart (Novolog) 15 unit SUBCUT NOW ONE Stop: 04/26/20 00:02 Last Admin: 04/26/20 00:05 Dose: 15 unit Documented by: Insulin Aspart (Novolog) 10 unit SUBCUT ONETIME ONE Stop: 04/26/20 01:42 Last Admin: 04/26/20 01:46 Dose: 10 unit Documented by: Insulin Detemir (Levemir) 15 unit SUBCUT DAILY [facility] Last Admin: 04/26/20 09:29 Dose: 15 units Documented by: Iopamidol (Isovue-370 (76%)) 66 ml IVPUSH ONETIME ONE Stop: 04/22/20 16:40 Last Admin: 04/22/20 16:39 Dose: 66 ml Documented by: Lorazepam (Ativan) 1 mg IVPUSH ONETIME ONE Stop: 04/22/20 15:57 Last Admin: 04/22/20 16:12 Dose: 1 mg Documented by: Lorazepam (Ativan) 0.5 mg IVPUSH Q4H PRN PRN Reason: Anxiety Last Admin: 04/22/20 21:16 Dose: 0.5 mg Documented by: Lorazepam (Ativan) 1 mg IVPUSH Q4H PRN PRN Reason: Anxiety Last Admin: 04/24/20 16:22 Dose: 1 mg Documented by: Lorazepam (Ativan) 1 mg IVPUSH Q4H PRN PRN Reason: Anxiety Last Admin: 04/26/20 11:52 Dose: 1 mg Documented by: Morphine Sulfate (Morphine) 4 mg IVPUSH ONETIME ONE Stop: 04/22/20 15:04 Last Admin: 04/22/20 15:19 Dose: 4 mg Documented by: Morphine Sulfate (Morphine) 4 mg IVPUSH ONETIME ONE Stop: 04/22/20 17:10 Last Admin: 04/22/20 17:24 Dose: 4 mg Documented by: Ondansetron HCl (Zofran) 4 mg IVPUSH ONETIME ONE Stop: 04/22/20 14:31 Last Admin: 04/22/20 14:51 Dose: 4 mg Documented by: Oxycodone HCl (Oxycodone) 5 mg PO Q4H PRN PRN Reason: Abdominal Pain Oxycodone HCl (Oxycodone) 5 mg PO Q6H NIGEL Last Admin: 04/26/20 18:57 Dose: Not Given Documented by: - Exam General: Alert, Moderate Distress HEENT: Pupils Equal Neck: Supple Lungs: Clear to Auscultation, Normal Respiratory Effort Cardiovascular: Regular Rate, Regular Rhythm GI/Abdominal Exam: Normal Bowel Sounds, Soft, Tender (to epigastrum). No: Distended, Guarding, Rigid, Rebound Skin: Warm, Dry, Intact Neurological: No New Focal Deficit Sepsis Event Note - Evaluation Sepsis Screening Result: No Definite Risk - Focused Exam Vital Signs: Vital Signs Temp Pulse Resp BP Pulse Ox 04/27/20 07:53 36.2 C 57 L 16 100/60 99 04/27/20 04:02 36.3 C 82 17 109/65 97 04/26/20 23:05 36.4 C 88 18 107/72 97 - Problem List Review Problem List Initiated/Reviewed/Updated: Yes - My Orders Last 24 Hours: My Active Orders 04/28/20 05:11 CBC WITH AUTO DIFF [HEME] AM COMPREHENSIVE METABOLIC PN,CMP [CHEM] AM - Plan Plan:: Assessment/Plan: Acute Pancreatitis- start soft diet, advance diet as tolerated, 125ml/hr LR,on oral oxycodone Hyperglycemia- Secondary to DM 1, Insulin sliding scale, IV FLUIDS, continue Levemir, PMH Anxiety, Bipolar- continue Home meds , we'll stop IV Ativan and switch to home dose of Valium anticpate discharge home tomorrow
[2020-04-27] MEDS: Promethazine 25 MG/ML SDV IM PRN ×2 (11:07→17:36)
[2020-04-27] MEDS: oxyCODONE 5 MG Tab PO PRN ×2 (17:35→22:46)
[2020-04-27] MEDS: Pantoprazole 40 MG in Sodium Chloride 0.9% 10 ML IV SCH (20:43)
[2020-04-27] MEDS: diphenhydrAMINE 50 MG Cap PO PRN (20:43)
[2020-04-27] MEDS: LORazepam 2 MG/ML SDV IVPUSH PRN (20:44)
[2020-04-27] MEDS: Enoxaparin 40 MG/0.4 ML Syringe SUBCUT SCH (21:06)
[2020-04-28] MEDS: Promethazine 25 MG/ML SDV IM PRN ×2 (03:33→10:52)
[2020-04-28 07:05] LABS: BLOOD UREA NITROGEN,BUN 15 mg/dL (7.0-18.0); CARBON DIOXIDE,CO2 26.9 mmol/L (21.0-32.0); CHLORIDE,CL 100 mmol/L (98-107); GLUCOSE RANDOM 364 mg/dL (74-106); POTASSIUM,K 4.2 mmol/L (3.5-5.1); SODIUM,NA 136 mmol/L (136-145)
[2020-04-28] MEDS: Insulin Aspart 100 Units/ML 3 ML Pen SUBCUT SCH ×4 (08:08→12:49)
[2020-04-28] MEDS: Diazepam 5 MG Tab PO PRN (08:11)
[2020-04-28] MEDS: oxyCODONE 5 MG Tab PO PRN (08:11)
[2020-04-28] MEDS: tiZANidine 4 MG Tab PO SCH (08:11)
[2020-04-28] MEDS: Insulin Detemir 100 Units/ML 3 ML Pen SUBCUT SCH (09:24)
[2020-04-28] MEDS: Lactated Ringers 1,000 ML IV SCH (10:48)
[2020-04-28] MEDS: LORazepam 2 MG/ML SDV IVPUSH PRN (10:49)
--- NOTE | 2020-04-28 12:17 | PCM.DCSUM1 ---
Discharge Summary - Discharge Data Discharge Date: 04/28/20 Discharge Disposition: Home, Self-Care 01 Condition: Good - Referral to Home Health Primary Care Physician: PCP Not In Area - Patient Summary/Data Hospital Course: 44 yr old female with pmh of recurrent pancreatitis, gastroparesis, and DM who was admitted for acute pancreatitis. She presented to the ED with complaints of nausea, vomiting and abdominal pain for several days. Patient is from [place] and visiting family. She is on [place] and Valium for chronic abdominal pain anxiety. She states she ran out of her pain medications as she missed her appointment with her pain specialist prior to traveling. CT abdomen was negative for any inflammatory pancreatic process, lipase elevated at 492, VBG ph 7.39, glucose 343, K+ 4.4, WBC 9.22. She was treat with IV fluids and bowel rest. She was receiving IV Dilaudid and then oral oxycodone for pain control. Today she is tolerating an oral diet without any nausea. She is to be discharged and patient plans on going home to [place] tomorrow with her parents. She requested that I refill her pain medication. I caller her pain specialist but was unable to get a hold of him. Because I was unable to talk with her pain specialist I told her that I did not feel comfortable prescribing her any narcotic. She understood and will reach out to her doctor as soon as possible. - Patient Instructions Diet: Usual Diet as Tolerated Activity: As Tolerated - Discharge Plan *PRESCRIPTION DRUG MONITORING PROGRAM REVIEWED*: Not Applicable *COPY OF PRESCRIPTION DRUG MONITORING REPORT IN PATIENT CESAR: Not Applicable Home Medications: Home Meds Acetaminophen/HYDROcodone [[place] 325-10 MG] 1 tab PO Q3HR PRN 04/22/20 [History] Insulin Aspart (Niacinamide) [Fiasp 100 Unit/ml Flextouch] See Protocol IM TIDAC PRN 04/22/20 [History] Insulin Aspart [NovoLOG] See Protocol IM TIDAC 04/22/20 [History] Insulin Detemir [Levemir] 35 unit SUBCUT ACBREAKFAST 04/22/20 [History] Ondansetron [Zofran] 8 mg PO Q6HR PRN 04/22/20 [History] Promethazine [Phenergan] 25 mg PO Q6HR PRN 04/22/20 [History] busPIRone [Buspar] 30 mg PO BID 04/22/20 [History] diazePAM [Valium] 5 mg PO TID PRN 04/22/20 [History] diphenhydrAMINE [Benadryl] 1 cap PO TID PRN 04/22/20 [History] tiZANidine HCl [Zanaflex] 12 mg PO TID 04/22/20 [History] Gabapentin [Neurontin] 04/23/20 [History] Insulin Aspart (Niacinamide) [Fiasp 100 Unit/ml Flextouch] 10 units SUBCUT TIDMEALS 04/23/20 [History] Referrals: Avtar Dill MD [Resident] - 05/11/20 1:00 pm - Discharge Summary/Plan Comment DC Time >30 min.: No - Patient Data Vitals - Most Recent: Last Vital Signs Temp 35.8 C L 04/28/20 11:28 Pulse 86 04/28/20 11:28 Resp 16 04/28/20 11:28 BP 97/64 04/28/20 11:28 Pulse Ox 100 04/28/20 11:28 Weight - Most Recent: 58.468 kg I&O - Last 24 hours: Intake & Output 04/27/20 04/28/20 04/28/20 22:59 06:59 14:59 Intake Total 1915 880 Output Total 2100 2200 Balance -185 -1320 Lab Results - Last 24 hrs: Laboratory Results - last 24 hr 04/27/20 04/27/20 04/27/20 Range/Units 14:20 16:00 17:47 WBC (4.0-11.0) K/uL RBC (4.30-5.90) M/uL Hgb (12.0-16.0) g/dL Hct (36.0-46.0) % MCV (80.0-98.0) fL MCH (27.0-32.0) pg MCHC (31.0-37.0) g/dL RDW Std Deviation (28.0-62.0) fl RDW Coeff of Nancy (11.0-15.0) % Plt Count (150-400) K/uL MPV (7.40-12.00) fL Neut % (Auto) (48.0-80.0) % Lymph % (Auto) (16.0-40.0) % [place] % (Auto) (0.0-15.0) % Eos % (Auto) (0.0-7.0) % Baso % (Auto) (0.0-1.5) % Neut # (Auto) (1.4-5.7) K/uL Lymph # (Auto) (0.6-2.4) K/uL [place] # (Auto) (0.0-0.8) K/uL Eos # (Auto) (0.0-0.7) K/uL Baso # (Auto) (0.0-0.1) K/uL Nucleated RBC % /100WBC Nucleated RBCs # K/uL Sodium (136-145) mmol/L Potassium (3.5-5.1) mmol/L Chloride (98-107) mmol/L Carbon Dioxide (21.0-32.0) mmol/L BUN (7.0-18.0) mg/dL Creatinine (0.6-1.0) mg/dL Est Cr Clr Drug Dosing mL/min Estimated GFR (MDRD) ml/min Glucose (74-106) mg/dL POC Glucose 115 H 73 156 H (60-110) mg/dL Calcium (8.5-10.1) mg/dL Total Bilirubin (0.2-1.0) mg/dL AST (15-37) IU/L ALT (14-63) IU/L Alkaline Phosphatase (46-116) U/L Total Protein (6.4-8.2) g/dL Albumin (3.4-5.0) g/dL Globulin (2.6-4.0) g/dL Albumin/Globulin Ratio (0.9-1.6) 04/28/20 04/28/20 04/28/20 Range/Units 06:05 06:05 07:34 WBC 4.56 (4.0-11.0) K/uL RBC 4.31 (4.30-5.90) M/uL Hgb 11.3 L (12.0-16.0) g/dL Hct 35.1 L (36.0-46.0) % MCV 81.4 (80.0-98.0) fL MCH 26.2 L (27.0-32.0) pg MCHC 32.2 (31.0-37.0) g/dL RDW Std Deviation 37.5 (28.0-62.0) fl RDW Coeff of Nancy 12 (11.0-15.0) % Plt Count 240 (150-400) K/uL MPV 10.10 (7.40-12.00) fL Neut % (Auto) 47.6 L (48.0-80.0) % Lymph % (Auto) 41.2 H (16.0-40.0) % [place] % (Auto) 7.9 (0.0-15.0) % Eos % (Auto) 3.1 (0.0-7.0) % Baso % (Auto) 0.2 (0.0-1.5) % Neut # (Auto) 2.2 (1.4-5.7) K/uL Lymph # (Auto) 1.9 (0.6-2.4) K/uL [place] # (Auto) 0.4 (0.0-0.8) K/uL Eos # (Auto) 0.1 (0.0-0.7) K/uL Baso # (Auto) 0.0 (0.0-0.1) K/uL Nucleated RBC % 0.0 /100WBC Nucleated RBCs # 0 K/uL Sodium 136 (136-145) mmol/L Potassium 4.2 (3.5-5.1) mmol/L Chloride 100 (98-107) mmol/L Carbon Dioxide 26.9 (21.0-32.0) mmol/L BUN 15 (7.0-18.0) mg/dL Creatinine 0.9 (0.6-1.0) mg/dL Est Cr Clr Drug Dosing 69.60 mL/min Estimated GFR (MDRD) > 60.0 ml/min Glucose 364 H (74-106) mg/dL POC Glucose 381 H (60-110) mg/dL Calcium 8.9 (8.5-10.1) mg/dL Total Bilirubin 0.1 L (0.2-1.0) mg/dL AST 13 L (15-37) IU/L ALT 27 (14-63) IU/L Alkaline Phosphatase 89 (46-116) U/L Total Protein 6.3 L (6.4-8.2) g/dL Albumin 3.2 L (3.4-5.0) g/dL Globulin 3.1 (2.6-4.0) g/dL Albumin/Globulin Ratio 1.0 (0.9-1.6) 04/28/20 Range/Units 09:23 WBC (4.0-11.0) K/uL RBC (4.30-5.90) M/uL Hgb (12.0-16.0) g/dL Hct (36.0-46.0) % MCV (80.0-98.0) fL MCH (27.0-32.0) pg MCHC (31.0-37.0) g/dL RDW Std Deviation (28.0-62.0) fl RDW Coeff of Nancy (11.0-15.0) % Plt Count (150-400) K/uL MPV (7.40-12.00) fL Neut % (Auto) (48.0-80.0) % Lymph % (Auto) (16.0-40.0) % [place] % (Auto) (0.0-15.0) % Eos % (Auto) (0.0-7.0) % Baso % (Auto) (0.0-1.5) % Neut # (Auto) (1.4-5.7) K/uL Lymph # (Auto) (0.6-2.4) K/uL [place] # (Auto) (0.0-0.8) K/uL Eos # (Auto) (0.0-0.7) K/uL Baso # (Auto) (0.0-0.1) K/uL Nucleated RBC % /100WBC Nucleated RBCs # K/uL Sodium (136-145) mmol/L Potassium (3.5-5.1) mmol/L Chloride (98-107) mmol/L Carbon Dioxide (21.0-32.0) mmol/L BUN (7.0-18.0) mg/dL Creatinine (0.6-1.0) mg/dL Est Cr Clr Drug Dosing mL/min Estimated GFR (MDRD) ml/min Glucose (74-106) mg/dL POC Glucose 265 H (60-110) mg/dL Calcium (8.5-10.1) mg/dL Total Bilirubin (0.2-1.0) mg/dL AST (15-37) IU/L ALT (14-63) IU/L Alkaline Phosphatase (46-116) U/L Total Protein (6.4-8.2) g/dL Albumin (3.4-5.0) g/dL Globulin (2.6-4.0) g/dL Albumin/Globulin Ratio (0.9-1.6) Med Orders - Current: Current Medications Acetaminophen (Tylenol) 650 mg PO Q4H PRN PRN Reason: Pain (Mild 1-3)/fever Last Admin: 04/27/20 16:04 Dose: 650 mg Documented by: Dextrose/Water (Dextrose 50% In Water) 50 ml IVPUSH Q6H PRN PRN Reason: Hypoglycemia Last Admin: 04/26/20 05:52 Dose: 25 ml Documented by: Diazepam (Valium.) 5 mg PO TID PRN PRN Reason: Anxiety Last Admin: 04/28/20 08:11 Dose: 5 mg Documented by: Diphenhydramine HCl (Benadryl) 50 mg PO TID PRN PRN Reason: Itching Last Admin: 04/27/20 20:43 Dose: 50 mg Documented by: Enoxaparin Sodium (Lovenox) 40 mg SUBCUT BEDTIME [facility] [place] Last Admin: 04/27/20 21:06 Dose: 40 mg Documented by: Pantoprazole Sodium 40 mg/ (Sodium Chloride) 10 mls @ 300 mls/hr IV Q24H NIGEL Last Admin: 04/27/20 20:43 Dose: 300 mls/hr Documented by: Lactated Ringer's (Ringers, Lactated) 1,000 mls @ 125 mls/hr IV ASDIRECTED [facility] [place] Last Admin: 04/28/20 10:48 Dose: 125 mls/hr Documented by: Insulin Aspart (Novolog) 0 unit SUBCUT TIDAC [facility] [place]; Protocol Last Admin: 04/28/20 08:09 Dose: 10 units Documented by: Insulin Aspart (Novolog) 5 unit SUBCUT TIDMEALS [facility] [place] Last Admin: 04/28/20 08:08 Dose: 5 units Documented by: Insulin Detemir (Levemir) 20 unit SUBCUT DAILY [facility] [place] Last Admin: 04/28/20 09:24 Dose: 20 units Documented by: Lorazepam (Ativan) 0.5 mg IVPUSH Q8H PRN PRN Reason: Anxiety Last Admin: 04/28/20 10:49 Dose: 0.5 mg Documented by: Ondansetron HCl (Zofran) 4 mg IVPUSH Q4H PRN PRN Reason: Nausea/Vomiting Last Admin: 04/26/20 21:15 Dose: 4 mg Documented by: Oxycodone HCl (Oxycodone) 5 mg PO Q6H PRN PRN Reason: PAIN Last Admin: 04/28/20 08:11 Dose: 5 mg Documented by: Petrolatum (Aquaphor With Natural Healing) 0 gm TOP TID PRN PRN Reason: Dryness Last Admin: 04/24/20 23:59 Dose: 1 applic Documented by: Promethazine HCl (Phenergan) 12.5 mg IM Q6H PRN PRN Reason: Nausea Last Admin: 04/28/20 10:52 Dose: 12.5 mg Documented by: Sodium Chloride (Saline Flush) 10 ml FLUSH ASDIRECTED PRN PRN Reason: Keep Vein Open Last Admin: 04/22/20 14:51 Dose: 10 ml Documented by: Sodium Chloride (Saline Flush) 2.5 ml FLUSH ASDIRECTED PRN PRN Reason: Keep Vein Open Last Admin: 04/22/20 14:51 Dose: 2.5 ml Documented by: Tizanidine HCl (Zanaflex) 12 mg PO TID NIGEL Last Admin: 04/28/20 08:11 Dose: 12 mg Documented by: Discontinued Medications Dextrose/Water (Dextrose 50% In Water) Confirm Administered Dose 50 ml .ROUTE .STK-MED ONE Stop: 04/22/20 21:34 Last Admin: 04/22/20 23:08 Dose: Not Given Documented by: Dextrose/Water (Dextrose 50% In Water) 25 ml IVPUSH ONETIME ONE Stop: 04/22/20 22:20 Last Admin: 04/22/20 22:47 Dose: 25 ml Documented by: Dextrose/Water (Dextrose 50% In Water) 25 ml IVPUSH ONETIME ONE Stop: 04/23/20 00:21 Last Admin: 04/23/20 00:25 Dose: 25 ml Documented by: Diazepam (Valium.) 5 mg PO TID PRN PRN Reason: muscle spasms Last Admin: 04/25/20 08:35 Dose: 5 mg Documented by: Diphenhydramine HCl (Benadryl) 50 mg IVPUSH ONETIME ONE Stop: 04/22/20 18:04 Last Admin: 04/22/20 18:27 Dose: 50 mg Documented by: Diphenhydramine HCl (Benadryl) 25 mg IVPUSH ONETIME ONE Stop: 04/22/20 22:22 Last Admin: 04/22/20 22:47 Dose: 25 mg Documented by: Diphenhydramine HCl (Benadryl) 25 mg IVPUSH Q8H PRN PRN Reason: itching/allergies Last Admin: 04/26/20 05:58 Dose: 25 mg Documented by: Famotidine (Pepcid) 20 mg IVPUSH ONETIME ONE Stop: 04/22/20 14:31 Last Admin: 04/22/20 14:51 Dose: 20 mg Documented by: Hydromorphone HCl (Dilaudid) 0.5 mg IVPUSH Q2H PRN PRN Reason: Pain Last Admin: 04/22/20 21:04 Dose: 0.5 mg Documented by: Hydromorphone HCl (Dilaudid) 1 mg IVPUSH Q3H PRN PRN Reason: Pain Last Admin: 04/24/20 04:39 Dose: 1 mg Documented by: Hydromorphone HCl (Dilaudid) 1 mg IVPUSH Q3H PRN PRN Reason: Pain Last Admin: 04/24/20 15:03 Dose: 1 mg Documented by: Hydromorphone HCl (Dilaudid) 1 mg IVPUSH Q4H PRN PRN Reason: Pain Last Admin: 04/26/20 05:46 Dose: 1 mg Documented by: Hydromorphone HCl (Dilaudid) 1 mg IVPUSH ONETIME ONE Stop: 04/26/20 12:35 Last Admin: 04/26/20 13:39 Dose: 1 mg Documented by: Sodium Chloride (Normal Saline) 1,000 mls @ 999 mls/hr IV .Bolus ONE Stop: 04/22/20 15:30 Last Admin: 04/22/20 14:50 Dose: 999 mls/hr Documented by: Sodium Chloride (Normal Saline) 1,000 mls @ 999 mls/hr IV .Bolus ONE Stop: 04/22/20 15:36 Last Admin: 04/22/20 14:51 Dose: 999 mls/hr Documented by: Lactated Ringer's (Ringers, Lactated) 1,000 mls @ 125 mls/hr IV ASDIRECTED [facility] [place] Last Admin: 04/22/20 21:01 Dose: 125 mls/hr Documented by: Dextrose/Lactated Ringer's (Dextrose 5%-Lactated Ringers) 1,000 mls @ 125 mls/hr IV ASDIRECTED [facility] [place] Last Admin: 04/25/20 04:49 Dose: 125 mls/hr Documented by: Magnesium Sulfate (Magnesium Sulfate In Water Premix) 2 gm in 50 mls @ 25 mls/hr IV NOW ONE Stop: 04/23/20 00:59 Last Admin: 04/22/20 23:18 Dose: 25 mls/hr Documented by: Lactated Ringer's (Ringers, Lactated) 1,000 mls @ 999 mls/hr IV .BOLUS ONE Stop: 04/23/20 11:31 Last Admin: 04/23/20 10:56 Dose: 999 mls/hr Documented by: Magnesium Sulfate 4 gm/ Premix 100 mls @ 33.333 mls/hr IV ONETIME ONE Stop: 04/24/20 13:12 Last Admin: 04/24/20 12:03 Dose: 33.333 mls/hr Documented by: Lactated Ringer's (Ringers, Lactated) 1,000 mls @ 999 mls/hr IV .BOLUS ONE Stop: 04/25/20 11:59 Last Admin: 04/25/20 13:27 Dose: Not Given Documented by: Magnesium Sulfate 4 gm/ Premix 100 mls @ 50 mls/hr IV ONETIME ONE Stop: 04/25/20 13:09 Last Admin: 04/25/20 12:12 Dose: 50 mls/hr Documented by: Lactated Ringer's (Ringers, Lactated) 1,000 mls @ 999 mls/hr IV .BOLUS ONE Stop: 04/25/20 14:15 Last Admin: 04/25/20 13:26 Dose: 999 mls/hr Documented by: Magnesium Sulfate 4 gm/ Premix 100 mls @ 33.333 mls/hr IV ONETIME ONE Stop: 04/26/20 16:36 Last Admin: 04/26/20 14:07 Dose: 33.333 mls/hr Documented by: Insulin Aspart (Novolog) 0 unit SUBCUT TIDAC [facility] [place]; Protocol Insulin Aspart (Novolog) 15 unit SUBCUT NOW STA Stop: 04/25/20 09:55 Last Admin: 04/25/20 10:03 Dose: 15 units Documented by: Insulin Aspart (Novolog) 15 unit SUBCUT NOW ONE Stop: 04/26/20 00:02 Last Admin: 04/26/20 00:05 Dose: 15 unit Documented by: Insulin Aspart (Novolog) 10 unit SUBCUT ONETIME ONE Stop: 04/26/20 01:42 Last Admin: 04/26/20 01:46 Dose: 10 unit Documented by: Insulin Aspart (Novolog) 5 unit SUBCUT TID [facility] [place] Last Admin: 04/27/20 14:30 Dose: Not Given Documented by: Insulin Detemir (Levemir) 15 unit SUBCUT DAILY [facility] [place] Last Admin: 04/26/20 09:29 Dose: 15 units Documented by: Iopamidol (Isovue-370 (76%)) 66 ml IVPUSH ONETIME ONE Stop: 04/22/20 16:40 Last Admin: 04/22/20 16:39 Dose: 66 ml Documented by: Lorazepam (Ativan) 1 mg IVPUSH ONETIME ONE Stop: 04/22/20 15:57 Last Admin: 04/22/20 16:12 Dose: 1 mg Documented by: Lorazepam (Ativan) 0.5 mg IVPUSH Q4H PRN PRN Reason: Anxiety Last Admin: 04/22/20 21:16 Dose: 0.5 mg Documented by: Lorazepam (Ativan) 1 mg IVPUSH Q4H PRN PRN Reason: Anxiety Last Admin: 04/24/20 16:22 Dose: 1 mg Documented by: Lorazepam (Ativan) 1 mg IVPUSH Q4H PRN PRN Reason: Anxiety Last Admin: 04/26/20 11:52 Dose: 1 mg Documented by: Morphine Sulfate (Morphine) 4 mg IVPUSH ONETIME ONE Stop: 04/22/20 15:04 Last Admin: 04/22/20 15:19 Dose: 4 mg Documented by: Morphine Sulfate (Morphine) 4 mg IVPUSH ONETIME ONE Stop: 04/22/20 17:10 Last Admin: 09/20/20 17:24 Dose: 4 mg Documented by: Ondansetron HCl (Zofran) 4 mg IVPUSH ONETIME ONE Stop: 04/22/20 14:31 Last Admin: 04/22/20 14:51 Dose: 4 mg Documented by: Oxycodone HCl (Oxycodone) 5 mg PO Q4H PRN PRN Reason: Abdominal Pain Oxycodone HCl (Oxycodone) 5 mg PO Q6H [facility] [place] Last Admin: 04/26/20 18:57 Dose: Not Given Documented by: Oxycodone HCl (Oxycodone) 5 mg PO Q6H [facility] [place] Last Admin: 04/27/20 11:28 Dose: 5 mg Documented by:
== END 2020-04-28 12:55 | disposition home or self-care (01) | DRG 440 ==
LOC: MW.ED 14:05 → MW.MS 17:57 → OBSVTOIN 04-24 10:18 → MW.MS 04-24 15:09
PROVIDERS: ADMIT Student in an Organized Health Care Education/Training Program; ATTEND Student in an Organized Health Care Education/Training Program
DX: K85.90 Acute pancreatitis without necrosis or infection, unspecified (principal); K31.84 Gastroparesis; F41.9 Anxiety disorder, unspecified; J45.909 Unspecified asthma, uncomplicated; F31.9 Bipolar disorder, unspecified; F43.10 Post-traumatic stress disorder, unspecified; Z20.828 Contact with and (suspected) exposure to other viral communicable diseases; E10.43 Type 1 diabetes mellitus with diabetic autonomic (poly)neuropathy; Z98.890 Other specified postprocedural states; F17.200 Nicotine dependence, unspecified, uncomplicated; F17.210 Nicotine dependence, cigarettes, uncomplicated; Z88.6 Allergy status to analgesic agent; E10.65 Type 1 diabetes mellitus with hyperglycemia; Z95.828 Presence of other vascular implants and grafts; Z79.4 Long term (current) use of insulin; Z79.899 Other long term (current) drug therapy; Z88.8 Allergy status to other drugs, medicaments and biological substances; Z91.018 Allergy to other foods; Z90.49 Acquired absence of other specified parts of digestive tract; Z90.710 Acquired absence of both cervix and uterus
CPT/HCPCS: 36415 ×3; 71045; 74177; 80048; 80053 ×2; 81001; 81025; 82803; 82962 ×16; 83036; 83690 ×2; 83735 ×2; 84100 ×2; 84484; 85025 ×3; 93005; 96361; 96374; 96375; 96376; 99285; C9113 ×2; J1170 ×11; J1200 ×5; J1650 ×2; J1815 ×2; J2060 ×10; J2270 ×2; J2405 ×10; J3475; J3490; J7030 ×2; J7050 ×2; J7120 ×2; J7121 ×5; Q9967; U0002; 80076; 82947; 96372; 99283; A9270-GY; G0378; J1642; J2550